=== PATIENT | male | born 1970 ===

== ENCOUNTER 2017-07-18 14:05 | Emergency (ER) | payer MEDICARE, MEDICAID ==
[2017-07-18 14:49] VITALS: BMI 25.8
[2017-07-18 14:50] VITALS: BP 126/77; PULSE 112; RESP 14; TEMP 97.5; O2SAT 98
[2017-07-18] MEDS ORDERED: cefTRIAXone 2 GM in Sodium Chloride 0.9% 100 ML IVPB STA (15:19)
[2017-07-18] MEDS ORDERED: Vancomycin 1 gm/NS 200 ml 1 GM/200 ML BAG IVPB STA (15:19)
--- NOTE | 2017-07-18 15:27 | C.PDOC ---
History Of Present Illness Patient is a 46 y/o M with 3 weeks of worsening R knee swelling. He reports that his knee is swollen and warm. Reports subjective fevers. Denies DM or IVDA. Time Seen by Provider: 07/18/17 14:45 Chief Complaint (Nursing): Lower Extremity Problem/Injury Past Medical History Vital Signs: Last Vital Signs Temp 97.5 F L 07/18/17 14:40 Pulse 112 H 07/18/17 14:40 Resp 14 07/18/17 14:40 BP 126/77 07/18/17 14:40 Pulse Ox 98 07/18/17 15:39 - Medical History PMH: Anxiety, Back Problems (spinal fusion), Bipolar Disorder, Depression, HTN, Hypercholesterolemia, Personality Disorder, Post Traumatic Stress Disorder, Schizophrenia, Chronic Pain (back) Surgical History: Appendectomy, Back Surgery, Tonsillectomy Family History: States: Unknown Family Hx - Social History Hx Tobacco Use: Yes Hx Alcohol Use: No Hx Substance Use: No - Immunization History Hx Tetanus Toxoid Vaccination: No Hx Influenza Vaccination: Yes Hx Pneumococcal Vaccination: No Review Of Systems Except As Marked, All Systems Reviewed And Found Negative. Constitutional: Positive for: Chills. Negative for: Fever Cardiovascular: Negative for: Chest Pain, Palpitations, Orthopnea, Edema, Light Headedness Respiratory: Negative for: Cough, Shortness of Breath, SOB with Excertion Gastrointestinal: Negative for: Nausea, Vomiting, Abdominal Pain, Diarrhea, Constipation Genitourinary: Negative for: Dysuria Musculoskeletal: Positive for: Other (knee pain and redness) Neurological: Negative for: Weakness, Numbness Physical Exam - Physical Exam Appears: Well, Non-toxic, No Acute Distress Skin: Normal Color, Warm, Dry Head: Atraumatic, Normacephalic Eye(s): bilateral: Normal Inspection, PERRL, EOMI Neck: Supple Chest: Symmetrical Cardiovascular: Other (tachycardic) Respiratory: Normal Breath Sounds Gastrointestinal/Abdominal: Soft, No Tenderness, No Mass, No Distention Back: Normal Inspection Extremity: Other (erythema and swelling to R knee. Tender. Decreased ROM and pain with ROM) Gait: Steady ED Course And Treatment O2 Sat by Pulse Oximetry: 98 Medical Decision Making Medical Decision Making: Patient's presentation is consistent with septic joint. Unable to aspirate joint due to surrounding cellulitis. Patient tachycardic on arrival. Blood work and blood cx, antibiotics, pain medication, and CT ordered. Patient will need admission. The patient declines admission or further medical evaluation and treatment, and wishes to leave the Emergency Department. He reports that he has to full up with his pain mgmt doctor this afternoon and needs to go home to speak to his . This action is against my medical advice to the patient and the decision was made with informed refusal. The patient was told that further evaluation, treatment and admission for IV antibiotics and orthopedic evaluation is necessary and a full explanation of the rationale was given. The risks of leaving were explained to the patient and include, but are not limited to, worsening of known or currently unknown conditions, permanent disability and from undiagnosed or untreated conditions The patient has the capacity to make this informed decision and understands the clinical situation and my explanation of the risks of leaving. The patient voluntarily accepts these risks , and a signed AMA form documenting our conversation was obtained. The patient was given the opportunity to ask questions and reconsider. The patient was encouraged to return to the Emergency Department at any time for further care. Disposition - Disposition Disposition: AGAINST MEDICAL ADVICE Disposition Time: 15:52 Condition: UNKNOWN Forms: [employer] (Maltese) - Clinical Impression Clinical Impression: Tachycardia, Knee swelling
== END 2017-07-18 15:52 | disposition left against medical advice (07) ==
LOC: C.ER 14:05
DX: R00.0 Tachycardia, unspecified (principal); R22.41 Localized swelling, mass and lump, right lower limb

== ENCOUNTER 2017-07-20 13:49 | Inpatient (IN) | payer MEDICARE, MEDICAID ==
[2017-07-20 13:50] VITALS: BMI 25.8
[2017-07-20] MEDS ORDERED: Sodium Chloride 0.9% 1,000 ML IV ONE (14:41)
[2017-07-20 15:07] LABS: BASO % 0.3 % (0.0-2.0); EOS # 0.2 K/uL (0.0-0.7); EOS % 1.3 % (0.0-4.0); HEMATOCRIT 37.7 % (35.0-51.0); LYMPH # 1.1 K/uL (1.0-4.3); LYMPH % 6.5 % (20.0-40.0); MEAN CELL VOLUME 92.1 fL (80.0-94.0); MEAN CORPUSCULAR HEMOGLOBIN 30.7 pg (27.0-31.0); MEAN CORPUSCULAR HGB CONC 33.3 g/dL (33.0-37.0); MEAN PLATELET VOLUME 9.1 fL (7.2-11.7); MONO # 1.1 K/uL (0.0-0.8); MONO % 6.8 % (0.0-10.0); PLATELET COUNT 283 K/uL (130-400); RED CELL DISTRIBUTION WIDTH 13.5 % (11.5-14.5)
[2017-07-20 15:09] LABS: WHITE BLOOD COUNT 16.1 K/uL (4.8-10.8)
[2017-07-20] MEDS ORDERED: Vancomycin 1 GM 1 GM/250 ML BAG IVPB STA (15:21)
[2017-07-20 15:22] LABS: CHLORIDE 104 mmol/L (98-107)
[2017-07-20 15:23] LABS: INR 1.1
[2017-07-20 15:23] LABS: SODIUM 139 mmol/L (132-148)
[2017-07-20 15:25] LABS: BILIRUBIN,TOTAL 0.6 mg/dL (0.2-1.3); GFR AFRICAN-AMERICAN > 60
[2017-07-20 15:26] LABS: ALB/GLOB RATIO 1.1 (1.0-2.1); ALKALINE PHOSPHATASE 113 U/L (38-126); ALT/SGPT 40 U/L (21-72); AST/SGOT 35 U/L (17-59); BLOOD UREA NITROGEN 10 mg/dL (9-20); CALCIUM 8.3 mg/dl (8.6-10.4); CARBON DIOXIDE 29 mmol/L (22-30); GLUCOSE,RANDOM 149 mg/dL (75-110); TOTAL PROTEIN 6.4 g/dL (6.3-8.3)
[2017-07-20 15:30] LABS: METAMYELOCYTE 1 % (0-0); NEUTROPHIL 86 % (50-75); TOTAL CELLS COUNTED 100
[2017-07-20] MEDS ORDERED: Vancomycin 1 GM 1 GM/250 ML BAG IVPB ONE (15:33)
[2017-07-20] MEDS ORDERED: Sodium Chloride 0.9% 1,000 ML ONE (15:33)
--- NOTE | 2017-07-20 15:48 | C.PDOC ---
History Of Present Illness Pt c/o right knee infection. Time Seen by Provider: 07/20/17 14:17 Chief Complaint (Nursing): Abnormal Skin Integrity History Per: Patient Onset/Duration Of Symptoms: Days (about 3 weeks) Current Symptoms Are (Timing): Worse Location Of Injury: Right: Knee Quality Of Symptoms: Painful, Swollen, Draining Severity: Moderate Additional History Per: Prior Records Past Medical History Reviewed: Historical Data, Nursing Documentation, Vital Signs Vital Signs: Last Vital Signs Temp 97.9 F 07/20/17 13:55 Pulse 93 H 07/20/17 13:55 Resp 18 07/20/17 13:55 BP 149/90 07/20/17 13:55 Pulse Ox 99 07/20/17 15:55 - Medical History PMH: Anxiety, Back Problems (spinal fusion), Bipolar Disorder, Depression, HTN, Hypercholesterolemia, Personality Disorder, Post Traumatic Stress Disorder, Schizophrenia, Chronic Pain (back) Surgical History: Appendectomy, Back Surgery, Tonsillectomy Family History: States: Unknown Family Hx - Social History Hx Tobacco Use: Yes Hx Alcohol Use: No Hx Substance Use: No - Immunization History Hx Tetanus Toxoid Vaccination: No Hx Influenza Vaccination: Yes Hx Pneumococcal Vaccination: No Review Of Systems Except As Marked, All Systems Reviewed And Found Negative. Constitutional: Positive for: Fever Cardiovascular: Negative for: Chest Pain Respiratory: Negative for: Cough, Shortness of Breath Gastrointestinal: Negative for: Vomiting, Abdominal Pain Genitourinary: Negative for: Dysuria Musculoskeletal: Negative for: Neck Pain Skin: Positive for: Rash Neurological: Negative for: Weakness, Numbness Physical Exam - Physical Exam Appears: Non-toxic, No Acute Distress Skin: Warm Head: Atraumatic, Normacephalic Eye(s): bilateral: Normal Inspection, PERRL, EOMI Neck: Normal ROM, Supple Cardiovascular: Rhythm Regular Respiratory: Normal Breath Sounds, No Accessory Muscle Use Gastrointestinal/Abdominal: Soft, No Tenderness Extremity: Tenderness (anterior right knee), Swelling (right knee), Other ( erythema and induration of anterior right knee with pus drainage) Extremity: Right: Limited ROM To Joint (Knee, due to pain) Pulses: Right Dorsalis Pedis: Normal Neurological/Psych: Oriented x3, Normal Motor, Normal Sensation ED Course And Treatment - Laboratory Results Result Diagrams: 07/20/17 14:59 07/20/17 14:59 Lab Interpretation: Abnormal Interpretation Of Abnormal: Leukocytosis with left shift O2 Sat by Pulse Oximetry: 99 Pulse Ox Interpretation: Normal Disposition Discussed With Dr.: Michael White Comment: He accepted pt on his service. Doctor Will See Patient In The: Hospital Counseled Patient/Family Regarding: Studies Performed, Diagnosis - Disposition Disposition: HOSPITALIZED Disposition Time: 15:59 Condition: FAIR - Clinical Impression Clinical Impression: Abscess or cellulitis of knee
[2017-07-20] MEDS ORDERED: oxyCODONE 5 mg Immediate Release Tab PO PRN ×2 (18:27→19:00)
[2017-07-20] MEDS ORDERED: Piperacill/Tazo 3.375gm in Dex 3.375 GM/50 ML BAG IVPB SCH (19:00)
[2017-07-20] MEDS ORDERED: oxyCODONE 5 mg Immediate Release Tab PO ONE (19:36)
[2017-07-20] MEDS ORDERED: oxyCODONE 10 mg Immediate Release Tab PO ONE (19:45)
[2017-07-20] MEDS: Morphine 30 mg SR Tab PO SCH (22:15)
[2017-07-21] MEDS: oxyCODONE 30 mg Immediate Release Tab PO PRN ×3 (02:21→18:43)
[2017-07-21] MEDS: Vancomycin 1 gm/NS 200 ml 1 GM/200 ML BAG IVPB SCH ×2 (04:00→15:45)
[2017-07-21] MEDS: Piperacill/Tazo 3.375gm in Dex 3.375 GM/50 ML BAG IVPB SCH ×4 (05:22→23:43)
[2017-07-21] MEDS ORDERED: Piperacillin/Tazobact 3.375 GM in Sodium Chloride 0.9% 100 ML IVPB SCH (06:00)
[2017-07-21] MEDS: Morphine 30 mg SR Tab PO SCH ×2 (10:22→21:44)
--- NOTE | 2017-07-21 15:17 | CP.PCM.CON ---
History of Present Illness - History of Present Illness History of Present Illness: Pt c/o right knee infection. right knee ant to patella IV rx in progress Discussed on rounds - Medical History PMH: Anxiety, Back Problems (spinal fusion), Bipolar Disorder, Depression, HTN, Hypercholesterolemia, Personality Disorder, Post Traumatic Stress Disorder, Schizophrenia, Chronic Pain (back) Surgical History: Appendectomy, Back Surgery, Tonsillectomy Family History: States: Unknown Family Hx Review of Systems - Review of Systems All systems: reviewed and no additional remarkable complaints except - Constitutional Constitutional: As Per HPI - EENT Eyes: absent: As Per HPI, Blind Spots, Blurred Vision, Change in Vision, Decreased Night Vision, Diplopia, Discharge, Dry Eye, Exophthalmos, Floaters, Irritation, Itchy Eyes, Loss of Peripheral Vision, Pain, Photophobia, Requires Corrective Lenses, Sees Flashes, Spots in Vision, Tunnel Vision, Other Visual Disturbances, Loss of Vision, Other Ears: absent: As Per HPI, Decreased Hearing, Ear Discharge, Ear Pain, Tinnitus, Abnormal Hearing, Disequilibrium, Dizziness, Other Nose/Mouth/Throat: absent: As Per HPI, Epistaxis, Nasal Congestion, Nasal Discharge, Nasal Obstruction, Nasal Trauma, Nose Pain, Post Nasal Drip, Sinus Pain, Sinus Pressure, Bleeding Gums, Change in Voice, Dental Pain, Dry Mouth, Dysphagia, Halitosis, Hoarsness, Lip Swelling, Mouth Lesions, Mouth Pain, Odynophagia, Sore Throat, Throat Swelling, Tongue Swelling, Facial Pain, Neck Pain, Neck Mass, Other - Cardiovascular Cardiovascular: absent: As Per HPI, Acrocyanosis, Chest Pain, Chest Pain at Rest , Chest Pain with Activity, Claudication, Diaphoresis, Dyspnea, Dyspnea on Exertion, Edema, Irregular Heart Rhythm, Pain Radiating to Arm/Neck/Jaw, Leg Edema, Leg Ulcers, Lightheadedness, Orthopnea, Palpitations, Paroxysmal Nocturnal Dyspnea, Pedal Edema, Radiating Pain, Rapid Heart Rate, Slow Heart Rate, Syncope, Other - Respiratory Respiratory: absent: As Per HPI, Cough, Dyspnea, Hemoptysis, Dyspnea on Exertion , Wheezing, Snoring, Stridor, Pain on Inspiration, Chest Congestion, Excessive Mucous Production, Change in Mucous Color, Pain with Coughing, Other - Gastrointestinal Gastrointestinal: absent: As Per HPI, Abdominal Pain, Belching, Bloating, Change in Bowel Habits, Change in Stool Character, Coffee Ground Emesis, Constipation, Cramping, Diarrhea, Dyspepsia, Dysphagia, Early Satiety, Excessive Flatus, Fecal Incontinence, Heartburn, Hematemesis, Hematochezia, Loose Stools, Melena, Nausea, Odynophagia, Temesmus, Vomiting, Other - Genitourinary Genitourinary: absent: As Per HPI, Change in Urinary Stream, Difficulty Urinating, Dysuria, Flank Pain, Hematuria, Pyuria, Nocturia, Urinary Incontinence, Urinary Frequency, Urinary Hesitance, Urinary Urgency, Voiding Freq/Small Amts, Freq UTI, Hx Renal/Bladder Calculi, Hx /Renal Surgery, Bladder Distension, Other - Musculoskeletal Musculoskeletal: As Per HPI - Integumentary Integumentary: As Per HPI, Skin Pain, Wounds - Neurological Neurological: absent: As Per HPI, Abnormal Gait, Abnormal Hearing, Abnormal Movements, Abnormal Speech, Behavioral Changes, Burning Sensations, Confusion, Convulsions, Disequilibrium, Dizziness, Numbness, Focal Weakness, Frequent Falls , Headaches, Lack of Coordination, Loss of Vision, Memory Loss, Paresthesias, Radicular Pain, Restless Legs, Sensory Deficit, Syncope, Tingling, Tremor, Vertigo, Weakness, Other Visual Disturbances, Other - Psychiatric Psychiatric: absent: As Per HPI, Abnormal Sleep Pattern, Anhedonia, Anxiety, Auditory Hallucinations, Behavioral Changes, Change in Appetite, Change in Libido, Confusion, Depression, Difficulty Concentrating, Hallucinations, Homicidal Ideation, Hopelessness, Irritability, Memory Loss, Mood Swings, Panic Attacks, Paranoia, Suicidal Ideation, Visual Hallucinations, Tactile Hallucinations, Other - Endocrine Endocrine: absent: As Per HPI, Change in Body Appearance, Change in Libido, Cold Intolorance, Deepening of Voice, Excessive Sweating, Fatigue, Flushing, Heat Intolorance, Increase in Ring/Shoe/Hat Size, Palpitations, Polydipsia, Polyphagia, Polyuria, Other - Hematologic/Lymphatic Hematologic: absent: As Per HPI, Easy Bleeding, Easy Bruising, Lymphadenopathy, Other Past Patient History - Infectious Disease Hx of Infectious Diseases: None - Past Medical History & Family History Past Medical History?: Yes - Past Social History Smoking Status: Smoker Currrent Status Unknown - CARDIAC Hx Cardiac Disorders: Yes Hx Hypercholesterolemia: Yes Hx Hypertension: Yes - PULMONARY Hx Respiratory Disorders: No - NEUROLOGICAL Hx Neurological Disorder: No - HEENT Hx HEENT Problems: No - RENAL Hx Chronic Kidney Disease: No - ENDOCRINE/METABOLIC Hx Endocrine Disorders: No - HEMATOLOGICAL/ONCOLOGICAL Hx Blood Disorders: No - INTEGUMENTARY Hx Dermatological Problems: Yes Hx Cellulitis: Yes (right knee) - MUSCULOSKELETAL/RHEUMATOLOGICAL Hx Musculoskeletal Disorders: No Hx Falls: No - GASTROINTESTINAL Hx Gastrointestinal Disorders: Yes Other/Comment: Numerous GI surgical interventions - GENITOURINARY/GYNECOLOGICAL Hx Genitourinary Disorders: No - PSYCHIATRIC Hx Psychophysiologic Disorder: Yes Hx Bipolar Disorder: Yes Hx Schizophrenia: Yes Hx Substance Use: No - SURGICAL HISTORY Hx Surgeries: Yes Hx Appendectomy: Yes Hx Orthopedic Surgery: Yes Hx Tonsillectomy: Yes - ANESTHESIA Hx Anesthesia: Yes Hx Anesthesia Reactions: No Hx Malignant Hyperthermia: No Has any member of the family had a problem w/ anesthesia?: No Meds Allergies/Adverse Reactions: Allergies Allergy/AdvReac Type Severity Reaction Status Date / Time No Known Allergies Allergy Verified 07/20/17 13:54 - Medications Medications: Current Medications Acetaminophen (Tylenol 325mg Tab) 650 mg PO Q6 PRN PRN Reason: Fever >100.4 F Heparin Sodium (Porcine) (Heparin) 5,000 units SC Q8 [facility] Last Admin: 07/21/17 13:49 Dose: Not Given Vancomycin/Sodium Chloride (Vancocin) 1 gm in 200 mls @ 133.333 mls/hr IVPB Q12H [facility] Stop: 07/26/17 03:31 Last Admin: 07/21/17 04:00 Dose: 133.333 mls/hr Piperacillin Sod/Tazobactam Sod (Zosyn 3.375 Gm Iv Premix) 3.375 gm in 50 mls @ 100 mls/hr IVPB Q6H [facility] Last Admin: 07/21/17 12:52 Dose: 100 mls/hr Morphine Sulfate (Morphine Extended Release Tab) 60 mg PO Q12 [facility] Last Admin: 07/21/17 10:22 Dose: 60 mg Oxycodone HCl (Oxycodone Immediate Release Tab) 30 mg PO Q6H PRN PRN Reason: Pain Last Admin: 07/21/17 12:57 Dose: 30 mg Pneumococcal Polyvalent Vaccine (Pneumovax 23 Vaccine) 0.5 ml IM .ONCE ONE Stop: 07/22/17 10:01 Sertraline HCl (Zoloft) 150 mg PO DAILY [facility] Last Admin: 07/21/17 10:22 Dose: 150 mg Physical Exam - Constitutional Appears: Non-toxic, Chronically Ill - Head Exam Head Exam: NORMOCEPHALIC - Eye Exam Eye Exam: PERRL. absent: Scleral icterus - ENT Exam ENT Exam: Mucous Membranes Dry, Normal External Ear Exam - Neck Exam Neck exam: Negative for: Lymphadenopathy - Respiratory Exam Respiratory Exam: Decreased Breath Sounds, Rhonchi - Cardiovascular Exam Cardiovascular Exam: REGULAR RHYTHM, +S1, +S2 - GI/Abdominal Exam GI & Abdominal Exam: Diminished Bowel Sounds, Soft. absent: Tenderness - Rectal Exam Rectal Exam: Deferred - Exam Exam: NORMAL INSPECTION - Extremities Exam Extremities exam: Positive for: pedal pulses present. Negative for: calf tenderness, pedal edema, tenderness Additional comments: cellulitis right knee no definite effusion - Back Exam Back exam: absent: CVA tenderness (L), CVA tenderness (R) - Neurological Exam Neurological exam: Alert, CN II-XII Intact, Oriented x3, Reflexes Normal - Psychiatric Exam Psychiatric exam: Depressed - Skin Skin Exam: Dry Results - Vital Signs Recent Vital Signs: Last Vital Signs Temp 98.5 F 07/21/17 08:00 Pulse 87 07/21/17 08:00 Resp 20 07/21/17 08:00 BP 104/58 L 07/21/17 08:00 Pulse Ox 95 07/21/17 08:00 - Labs Result Diagrams: 07/20/17 14:59 07/20/17 14:59 Assessment & Plan (1) Abscess or cellulitis of knee Status: Acute (2) Knee swelling Status: Acute - Assessment and Plan (Free Text) Assessment: cont iv rx needs i and d
--- NOTE | 2017-07-21 23:49 | CP.PCM.HP ---
Past Patient History - Infectious Disease Hx of Infectious Diseases: None - Past Medical History & Family History Past Medical History?: Yes - Past Social History Smoking Status: Smoker Currrent Status Unknown - CARDIAC Hx Cardiac Disorders: Yes Hx Hypercholesterolemia: Yes Hx Hypertension: Yes - PULMONARY Hx Respiratory Disorders: No - NEUROLOGICAL Hx Neurological Disorder: No - HEENT Hx HEENT Problems: No - RENAL Hx Chronic Kidney Disease: No - ENDOCRINE/METABOLIC Hx Endocrine Disorders: No - HEMATOLOGICAL/ONCOLOGICAL Hx Blood Disorders: No - INTEGUMENTARY Hx Dermatological Problems: Yes Hx Cellulitis: Yes (right knee) - MUSCULOSKELETAL/RHEUMATOLOGICAL Hx Musculoskeletal Disorders: No Hx Falls: No - GASTROINTESTINAL Hx Gastrointestinal Disorders: Yes Other/Comment: Numerous GI surgical interventions - GENITOURINARY/GYNECOLOGICAL Hx Genitourinary Disorders: No - PSYCHIATRIC Hx Psychophysiologic Disorder: Yes Hx Bipolar Disorder: Yes Hx Schizophrenia: Yes Hx Substance Use: No - SURGICAL HISTORY Hx Surgeries: Yes Hx Appendectomy: Yes Hx Orthopedic Surgery: Yes Hx Tonsillectomy: Yes - ANESTHESIA Hx Anesthesia: Yes Hx Anesthesia Reactions: No Hx Malignant Hyperthermia: No Has any member of the family had a problem w/ anesthesia?: No Meds Allergies/Adverse Reactions: Allergies Allergy/AdvReac Type Severity Reaction Status Date / Time No Known Allergies Allergy Verified 07/20/17 13:54 Results - Vital Signs Recent Vital Signs: Last Vital Signs Temp 98.0 F 07/21/17 15:07 Pulse 78 07/21/17 15:07 Resp 20 07/21/17 15:07 BP 115/75 07/21/17 15:07 Pulse Ox 96 07/21/17 15:07 - Labs Result Diagrams: 07/20/17 14:59 07/20/17 14:59 Labs: Laboratory Results - last 24 hr 07/21/17 10:59 Urine Opiates Screen Positive Urine Methadone Screen Negative Ur Barbiturates Screen Negative Ur Phencyclidine Scrn Negative Ur Amphetamines Screen Negative U Benzodiazepines Scrn Negative U Oth Cocaine Metabols Negative U Cannabinoids Screen Negative
[2017-07-22] MEDS: oxyCODONE 30 mg Immediate Release Tab PO PRN ×3 (00:32→10:34)
[2017-07-22] MEDS: Vancomycin 1 gm/NS 200 ml 1 GM/200 ML BAG IVPB SCH ×2 (03:23→14:46)
[2017-07-22] MEDS: Piperacill/Tazo 3.375gm in Dex 3.375 GM/50 ML BAG IVPB SCH ×3 (05:19→17:36)
[2017-07-22] MEDS: Morphine 30 mg SR Tab PO SCH ×2 (09:15→21:51)
[2017-07-22] MEDS ORDERED: Pneumococcal 23-Valent Vaccine IM ONE (10:00)
--- NOTE | 2017-07-22 10:58 | HP ---
CHIEF COMPLAINT: Right knee pain, redness, swelling, and fever x2. HISTORY OF PRESENT ILLNESS: This is a 46-year-old white male with history of chronic back problems, he had surgeries, he had been followed up by Pain Management, and he is on large doses of narcotic pain medications, who is compliant with his diet, medication, and followup, and 2 weeks ago, he shaved hair on his right leg, and in that process, he made a cut to his right knee, and later on, he did not seek any medical attention until now, and now his right knee is red, warm to touch, painful, and the patient is having difficulty walking. He has fever, chills, and rigors. He has discharge from his right wound in front of the right knee and he has difficulty walking. He denies any nausea, vomiting, diarrhea, or abdominal pain. He denies any polyuria, polydipsia, or polyplegia. He denies any hematuria or pyuria. He had lower back pain radiating to the hips. He denies any history of trauma, fall, seizure-like activity. No history of loss of consciousness. He denies any street drugs or alcohol. There is no history of sneezing, itchy eyes, or itchy nose. There is no history of blind spot, blurring of vision, change of vision, decreased anosmia. There is no history of diplopia, discharge, or dry eyes. The patient denies any cough, hemoptysis, dyspnea on exertion, wheezing, snoring, stridor, pain upon inspiration, chest congestion, or excessive mucus production. The patient denies any history of change in urinary stream, difficulty urinating, or dysuria. He denies flank pain, hematuria, pyuria, nocturia, urinary incontinence, and he denies any history of difficulty walking. He denies any abnormal hearing, abnormal movements, abnormal speech, or behavioral changes, and he denies any history of depression, suicidal or homicidal ideation. SOCIAL HISTORY: He is nonsmoker, non-EtOH user. FAMILY HISTORY: Noncontributory. CURRENT MEDICATIONS: He is on MS Contin, oxycodone, Zoloft, Norvasc. PHYSICAL EXAMINATION GENERAL: A middle-aged male, in no acute distress. VITAL SIGNS: Blood pressure is 104/54, pulse 57, respiratory rate 20, and temperature 98.5. SKIN: Has extensive tattoos all over. HEENT: Atraumatic and normocephalic. Negative pallor. Negative jaundice. Extraocular movements are intact. NECK: Supple. Flat neck veins. No JVD. CHEST: Chest wall bilaterally symmetrical expansion. LUNGS: Bilaterally clear. No rales, no rhonchi. CVS: S1 and S2 regular. No heaves noted. ABDOMEN: Soft and nontender. Bowel sounds are positive. RECTAL: Normal. EXTREMITIES: No clubbing, cyanosis, or edema. Right knee, the patient has open wound in front of right knee with discharge, red discoloration of entire kneecap. Peripheral pulses are present. CENTRAL NERVOUS SYSTEM: Awake, alert, and oriented x3. Cranial nerves II through XII are normal. Power is 5/5 x4. ASSESSMENT: 1. Cellulitis of the right knee, right leg, rule out osteomyelitis. 2. Low back pain. PLAN: Admit, detailed orders written, seen and examined. Michael White MD
[2017-07-22] MEDS: oxyCODONE 10 mg Immediate Release Tab PO STA (13:19)
[2017-07-22 16:28] LABS: BASO # 0.1 K/uL (0.0-0.2); BASO % 0.7 % (0.0-2.0); EOS # 0.5 K/uL (0.0-0.7); EOS % 5.1 % (0.0-4.0); HEMATOCRIT 35.3 % (35.0-51.0); LYMPH # 1.9 K/uL (1.0-4.3); LYMPH % 20.6 % (20.0-40.0); MEAN CELL VOLUME 92.3 fL (80.0-94.0); MEAN CORPUSCULAR HEMOGLOBIN 31.4 pg (27.0-31.0); MEAN PLATELET VOLUME 8.4 fL (7.2-11.7); MONO # 0.8 K/uL (0.0-0.8); MONO % 8.5 % (0.0-10.0); RED CELL DISTRIBUTION WIDTH 13.6 % (11.5-14.5); WHITE BLOOD COUNT 9.4 K/uL (4.8-10.8)
[2017-07-22 16:46] LABS: CHLORIDE 104 mmol/L (98-107)
[2017-07-22 16:47] LABS: POTASSIUM 4.2 mmol/L (3.6-5.2); SODIUM 143 mmol/L (132-148)
[2017-07-22 16:49] LABS: GFR AFRICAN-AMERICAN > 60
[2017-07-22 16:50] LABS: BLOOD UREA NITROGEN 11 mg/dL (9-20); CALCIUM 8.5 mg/dl (8.6-10.4); CARBON DIOXIDE 28 mmol/L (22-30); GLUCOSE,RANDOM 97 mg/dL (75-110)
[2017-07-23] MEDS: oxyCODONE 30 mg Immediate Release Tab PO PRN ×4 (00:01→17:44)
[2017-07-23] MEDS: Piperacill/Tazo 3.375gm in Dex 3.375 GM/50 ML BAG IVPB SCH ×4 (00:01→17:45)
[2017-07-23] MEDS: Vancomycin 1 gm/NS 200 ml 1 GM/200 ML BAG IVPB SCH ×2 (03:15→14:40)
[2017-07-23 07:52] VITALS: RESP 20
[2017-07-23] MEDS: Morphine 30 mg SR Tab PO SCH ×2 (10:56→21:38)
--- NOTE | 2017-07-23 13:42 | CP.PCM.PN ---
Subjective - Date & Time of Evaluation Date of Evaluation: 07/23/17 Time of Evaluation: 07:00 - Subjective Subjective: iv rx in progress + MSSA Objective - Vital Signs/Intake and Output Vital Signs (last 24 hours): Temp Pulse Resp BP Pulse Ox 98.6 F 77 20 119/69 95 07/23/17 07:50 07/23/17 07:50 07/23/17 07:50 07/23/17 07:50 07/23/17 07:50 Intake and Output: 07/23/17 07/23/17 06:59 18:59 Intake Total 500 Balance 500 - Medications Medications: Current Medications Acetaminophen (Tylenol 325mg Tab) 650 mg PO Q6 PRN PRN Reason: Fever >100.4 F Heparin Sodium (Porcine) (Heparin) 5,000 units SC Q8 [facility] Last Admin: 07/23/17 13:03 Dose: Not Given Vancomycin/Sodium Chloride (Vancocin) 1 gm in 200 mls @ 133.333 mls/hr IVPB Q12H [facility] Stop: 07/26/17 03:31 Last Admin: 07/23/17 03:15 Dose: 133.333 mls/hr Piperacillin Sod/Tazobactam Sod (Zosyn 3.375 Gm Iv Premix) 3.375 gm in 50 mls @ 100 mls/hr IVPB Q6H [facility] Last Admin: 07/23/17 06:10 Dose: 100 mls/hr Morphine Sulfate (Morphine Extended Release Tab) 60 mg PO Q12 [facility] Last Admin: 07/23/17 10:56 Dose: 60 mg Oxycodone HCl (Oxycodone Immediate Release Tab) 30 mg PO Q6H PRN PRN Reason: Pain Last Admin: 07/23/17 11:48 Dose: 30 mg Sertraline HCl (Zoloft) 150 mg PO DAILY [facility] Last Admin: 07/23/17 10:57 Dose: 150 mg - Labs Labs: 07/22/17 16:25 07/22/17 16:25 PT 12.2 SECONDS (9.7-12.2) 07/20/17 15:03 INR 1.1 07/20/17 15:03 APTT 34 SECONDS (21-34) 07/20/17 15:03 - Constitutional Appears: Non-toxic, Chronically Ill - Head Exam Head Exam: NORMOCEPHALIC - Eye Exam Eye Exam: PERRL - ENT Exam ENT Exam: Mucous Membranes Dry - Neck Exam Neck Exam: absent: Lymphadenopathy - Respiratory Exam Respiratory Exam: Decreased Breath Sounds, Rhonchi - Cardiovascular Exam Cardiovascular Exam: REGULAR RHYTHM - GI/Abdominal Exam GI & Abdominal Exam: Distended, Soft Assessment and Plan (1) Abscess or cellulitis of knee Status: Acute (2) Knee swelling Status: Acute - Assessment and Plan (Free Text) Plan: cont iv rx and wound care
--- NOTE | 2017-07-23 13:53 | CP.PCM.PN ---
Subjective - Date & Time of Evaluation Date of Evaluation: 07/23/17 Time of Evaluation: 13:50 - Subjective Subjective: Patient states knee is feeling much better. He says he still got a little bit of pus out of his knee today. Denies numbness/tingling Review of Systems - Review of Systems All systems: reviewed and no additional remarkable complaints except - Constitutional Constitutional: UN Additional comments: deniess fever chills - Cardiovascular Cardiovascular: UNREMARKABLE - Respiratory Respiratory: UNREMARKABLE - Musculoskeletal Musculoskeletal: As Par HPI - Integumentary Integumentary: As Per HPI - Neurological Neurological: As Per HPI - Hematologic/Lymphatic Hematologic: UNREMARKABLE Objective - Vital Signs/Intake and Output Vital Signs (last 24 hours): Temp Pulse Resp BP Pulse Ox 98.6 F 77 20 119/69 95 07/23/17 07:50 07/23/17 07:50 07/23/17 07:50 07/23/17 07:50 07/23/17 07:50 Intake and Output: 07/23/17 07/23/17 06:59 18:59 Intake Total 500 Balance 500 - Medications Medications: Current Medications Acetaminophen (Tylenol 325mg Tab) 650 mg PO Q6 PRN PRN Reason: Fever >100.4 F Heparin Sodium (Porcine) (Heparin) 5,000 units SC Q8 [facility] Last Admin: 07/23/17 13:03 Dose: Not Given Vancomycin/Sodium Chloride (Vancocin) 1 gm in 200 mls @ 133.333 mls/hr IVPB Q12H [facility] Stop: 07/26/17 03:31 Last Admin: 07/23/17 03:15 Dose: 133.333 mls/hr Piperacillin Sod/Tazobactam Sod (Zosyn 3.375 Gm Iv Premix) 3.375 gm in 50 mls @ 100 mls/hr IVPB Q6H [facility] Last Admin: 07/23/17 06:10 Dose: 100 mls/hr Morphine Sulfate (Morphine Extended Release Tab) 60 mg PO Q12 [facility] Last Admin: 07/23/17 10:56 Dose: 60 mg Oxycodone HCl (Oxycodone Immediate Release Tab) 30 mg PO Q6H PRN PRN Reason: Pain Last Admin: 07/23/17 11:48 Dose: 30 mg Sertraline HCl (Zoloft) 150 mg PO DAILY [facility] Last Admin: 07/23/17 10:57 Dose: 150 mg - Labs Labs: 07/22/17 16:25 07/22/17 16:25 PT 12.2 SECONDS (9.7-12.2) 07/20/17 15:03 INR 1.1 07/20/17 15:03 APTT 34 SECONDS (21-34) 07/20/17 15:03 - Constitutional Appears: Well, No Acute Distress - Cardiovascular Exam Additional comments: +DP /PT pulses, calves soft NT neg homans - Extremities Exam Additional comments: sensation intact wound cleaned and dry sterile dressing applied no fluctuance noted, clinically doesn't appear to have any area to I&D at this time - Neurological Exam Neurological Exam: Alert, Awake, Oriented x3 Neuro motor strength exam: Right Lower Extremity: 5 (no pain with ROM knee, + ROM ankle/toes) - Psychiatric Exam Psychiatric exam: Normal Affect, Normal Mood - Skin Skin Exam: Warm Additional comments: + erythema skin peeling 3 wounds noted, one most medial able to express scant pus today Assessment and Plan (1) Septic prepatellar bursitis of right knee Assessment & Plan: Dr. Scales notified of consult 07/21 per chart ordered warm compresses at this time, spontaneously draining from 3 sites prepatellar cont warm compresses and dressing changes will monitor for any recurrent abscess formation +MSSA per culture cont IV abx and monitoring at this time no clinical suspicion of deep infection or joint involvement at this time xrays d/w Dr. Scales, agrees with above Status: Acute Past Patient History - Infectious Disease Hx of Infectious Diseases: None - Past Medical History & Family History Past Medical History?: Yes - Past Social History Smoking Status: Smoker Currrent Status Unknown - CARDIAC Hx Cardiac Disorders: Yes Hx Hypercholesterolemia: Yes Hx Hypertension: Yes - PULMONARY Hx Respiratory Disorders: No - NEUROLOGICAL Hx Neurological Disorder: No - HEENT Hx HEENT Problems: No - RENAL Hx Chronic Kidney Disease: No - ENDOCRINE/METABOLIC Hx Endocrine Disorders: No - HEMATOLOGICAL/ONCOLOGICAL Hx Blood Disorders: No - INTEGUMENTARY Hx Dermatological Problems: Yes Hx Cellulitis: Yes (right knee) - MUSCULOSKELETAL/RHEUMATOLOGICAL Hx Musculoskeletal Disorders: No Hx Falls: No - GASTROINTESTINAL Hx Gastrointestinal Disorders: Yes Other/Comment: Numerous GI surgical interventions - GENITOURINARY/GYNECOLOGICAL Hx Genitourinary Disorders: No - PSYCHIATRIC Hx Psychophysiologic Disorder: Yes Hx Bipolar Disorder: Yes Hx Schizophrenia: Yes Hx Substance Use: No - SURGICAL HISTORY Hx Surgeries: Yes Hx Appendectomy: Yes Hx Orthopedic Surgery: Yes Hx Tonsillectomy: Yes - ANESTHESIA Hx Anesthesia: Yes Hx Anesthesia Reactions: No Hx Malignant Hyperthermia: No Has any member of the family had a problem w/ anesthesia?: No
[2017-07-23] MEDS: oxyCODONE 10 mg Immediate Release Tab PO STA ×3 (15:14→15:21)
--- NOTE | 2017-07-23 15:37 | RAD ---
PROCEDURE: Right Knee Radiographs. HISTORY: knee pain COMPARISON: None. FINDINGS: BONES: No evidence of acute displaced fracture nor dislocation. The osseous structures intact. . No obvious cortical destructive changes. JOINTS: Joint spaces preserved. No significant osteoarthritis. JOINT EFFUSION: Tiny suprapatellar joint effusion. In addition, there also appears to be mild prepatellar soft tissue swelling. OTHER FINDINGS: None. IMPRESSION: No evidence of acute displaced fracture nor dislocation. Tiny suprapatellar joint effusion and mild prepatellar soft tissue swelling. Changes are nonspecific although could represent sequela of trauma however the possibility of inflammatory process/cellulitis not excluded. Clinical correlation recommended.
--- NOTE | 2017-07-23 23:54 | CP.PCM.PN ---
Subjective - Date & Time of Evaluation Date of Evaluation: 07/22/17 - Subjective Subjective: RKNEE PAIN, DISCHARGE, NO FEVER, NO SOB, NO COUGH, NO CHEST PAIN Objective - Vital Signs/Intake and Output Vital Signs (last 24 hours): Temp Pulse Resp BP Pulse Ox 98.0 F 71 20 117/72 96 07/23/17 15:00 07/23/17 15:00 07/23/17 15:00 07/23/17 15:00 07/23/17 15:00 Intake and Output: 07/23/17 07/24/17 18:59 06:59 Intake Total 500 Balance 500 - Medications Medications: Current Medications Acetaminophen (Tylenol 325mg Tab) 650 mg PO Q6 PRN PRN Reason: Fever >100.4 F Heparin Sodium (Porcine) (Heparin) 5,000 units SC Q8 [facility] Last Admin: 07/23/17 21:39 Dose: Not Given Vancomycin/Sodium Chloride (Vancocin) 1 gm in 200 mls @ 133.333 mls/hr IVPB Q12H [facility] Stop: 07/26/17 03:31 Last Admin: 07/23/17 14:40 Dose: 133.333 mls/hr Piperacillin Sod/Tazobactam Sod (Zosyn 3.375 Gm Iv Premix) 3.375 gm in 50 mls @ 100 mls/hr IVPB Q6H [facility] Last Admin: 07/23/17 17:45 Dose: 100 mls/hr Morphine Sulfate (Morphine Extended Release Tab) 60 mg PO Q12 [facility] Last Admin: 07/23/17 21:38 Dose: 60 mg Oxycodone HCl (Oxycodone Immediate Release Tab) 30 mg PO Q6H PRN PRN Reason: Pain Last Admin: 07/23/17 17:44 Dose: 30 mg Sertraline HCl (Zoloft) 150 mg PO DAILY [facility] Last Admin: 07/23/17 10:57 Dose: 150 mg - Labs Labs: 07/22/17 16:25 07/22/17 16:25 PT 12.2 SECONDS (9.7-12.2) 07/20/17 15:03 INR 1.1 07/20/17 15:03 APTT 34 SECONDS (21-34) 07/20/17 15:03 - Constitutional Appears: Non-toxic, No Acute Distress - Head Exam Head Exam: ATRAUMATIC, NORMAL INSPECTION, NORMOCEPHALIC - Eye Exam Eye Exam: EOMI, Normal appearance Pupil Exam: NORMAL ACCOMODATION - ENT Exam ENT Exam: Mucous Membranes Moist, Normal Exam - Neck Exam Neck Exam: Full ROM, Normal Inspection - Respiratory Exam Respiratory Exam: Clear to Ausculation Bilateral, NORMAL BREATHING PATTERN - Cardiovascular Exam Cardiovascular Exam: REGULAR RHYTHM, +S1, +S2 - GI/Abdominal Exam GI & Abdominal Exam: Soft - Extremities Exam Extremities Exam: Joint Swelling (R KNEE SWELLING, SKIN CUTS) Assessment and Plan (1) Septic prepatellar bursitis of right knee Assessment & Plan: PENDING WOUND CULTURE Status: Acute (2) Chronic back pain Status: Chronic
--- NOTE | 2017-07-23 23:55 | CP.PCM.PN ---
Subjective - Date & Time of Evaluation Date of Evaluation: 07/23/17 - Subjective Subjective: R KNEE WAS TAPED AND STAPH POSITIVE CULTURE, NO FEVER, ON ANTIBIOTICS Objective - Vital Signs/Intake and Output Vital Signs (last 24 hours): Temp Pulse Resp BP Pulse Ox 98.0 F 71 20 117/72 96 07/23/17 15:00 07/23/17 15:00 07/23/17 15:00 07/23/17 15:00 07/23/17 15:00 Intake and Output: 07/23/17 07/24/17 18:59 06:59 Intake Total 500 Balance 500 - Medications Medications: Current Medications Acetaminophen (Tylenol 325mg Tab) 650 mg PO Q6 PRN PRN Reason: Fever >100.4 F Heparin Sodium (Porcine) (Heparin) 5,000 units SC Q8 [facility] Last Admin: 07/23/17 21:39 Dose: Not Given Vancomycin/Sodium Chloride (Vancocin) 1 gm in 200 mls @ 133.333 mls/hr IVPB Q12H [facility] Stop: 07/26/17 03:31 Last Admin: 07/23/17 14:40 Dose: 133.333 mls/hr Piperacillin Sod/Tazobactam Sod (Zosyn 3.375 Gm Iv Premix) 3.375 gm in 50 mls @ 100 mls/hr IVPB Q6H [facility] Last Admin: 07/23/17 17:45 Dose: 100 mls/hr Morphine Sulfate (Morphine Extended Release Tab) 60 mg PO Q12 [facility] Last Admin: 07/23/17 21:38 Dose: 60 mg Oxycodone HCl (Oxycodone Immediate Release Tab) 30 mg PO Q6H PRN PRN Reason: Pain Last Admin: 07/23/17 17:44 Dose: 30 mg Sertraline HCl (Zoloft) 150 mg PO DAILY [facility] Last Admin: 07/23/17 10:57 Dose: 150 mg - Labs Labs: 07/22/17 16:25 07/22/17 16:25 PT 12.2 SECONDS (9.7-12.2) 07/20/17 15:03 INR 1.1 07/20/17 15:03 APTT 34 SECONDS (21-34) 07/20/17 15:03 - Constitutional Appears: Non-toxic, No Acute Distress - Head Exam Head Exam: ATRAUMATIC, NORMAL INSPECTION, NORMOCEPHALIC - Extremities Exam Extremities Exam: Normal Capillary Refill (R KNEE REDNESS AND SWELLING) Assessment and Plan (1) Septic prepatellar bursitis of right knee Status: Acute (2) Chronic back pain Status: Chronic
[2017-07-24] MEDS: Piperacill/Tazo 3.375gm in Dex 3.375 GM/50 ML BAG IVPB SCH ×3 (00:10→11:41)
[2017-07-24] MEDS: oxyCODONE 30 mg Immediate Release Tab PO PRN ×4 (00:30→19:44)
[2017-07-24] MEDS: Vancomycin 1 gm/NS 200 ml 1 GM/200 ML BAG IVPB SCH ×2 (03:25→14:33)
[2017-07-24 08:16] LABS: BASO # 0.1 K/uL (0.0-0.2); BASO % 0.9 % (0.0-2.0); EOS # 0.4 K/uL (0.0-0.7); EOS % 5.4 % (0.0-4.0); HEMATOCRIT 38.2 % (35.0-51.0); LYMPH # 2.1 K/uL (1.0-4.3); LYMPH % 25.2 % (20.0-40.0); MEAN CELL VOLUME 91.7 fL (80.0-94.0); MEAN CORPUSCULAR HEMOGLOBIN 30.7 pg (27.0-31.0); MEAN CORPUSCULAR HGB CONC 33.5 g/dL (33.0-37.0); MEAN PLATELET VOLUME 8.3 fL (7.2-11.7); MONO # 0.8 K/uL (0.0-0.8); MONO % 9.7 % (0.0-10.0); RED CELL DISTRIBUTION WIDTH 13.4 % (11.5-14.5); WHITE BLOOD COUNT 8.2 K/uL (4.8-10.8)
--- NOTE | 2017-07-24 08:25 | CP.PCM.PN ---
Subjective - Date & Time of Evaluation Date of Evaluation: 07/24/17 Time of Evaluation: 08:22 - Subjective Subjective: Patient states knee pain continues to improve. No changes overnight. Objective - Vital Signs/Intake and Output Vital Signs (last 24 hours): Temp Pulse Resp BP Pulse Ox 97.8 F 62 20 123/73 98 07/24/17 07:47 07/24/17 07:47 07/24/17 07:47 07/24/17 07:47 07/24/17 07:47 Intake and Output: 07/24/17 07/24/17 06:59 18:59 Intake Total 940 Output Total 800 Balance 140 - Medications Medications: Current Medications Acetaminophen (Tylenol 325mg Tab) 650 mg PO Q6 PRN PRN Reason: Fever >100.4 F Heparin Sodium (Porcine) (Heparin) 5,000 units SC Q8 [facility] Last Admin: 07/24/17 05:07 Dose: Not Given Vancomycin/Sodium Chloride (Vancocin) 1 gm in 200 mls @ 133.333 mls/hr IVPB Q12H [facility] Stop: 07/26/17 03:31 Last Admin: 07/24/17 03:25 Dose: 133.333 mls/hr Piperacillin Sod/Tazobactam Sod (Zosyn 3.375 Gm Iv Premix) 3.375 gm in 50 mls @ 100 mls/hr IVPB Q6H [facility] Last Admin: 07/24/17 05:06 Dose: 100 mls/hr Morphine Sulfate (Morphine Extended Release Tab) 60 mg PO Q12 [facility] Last Admin: 07/23/17 21:38 Dose: 60 mg Oxycodone HCl (Oxycodone Immediate Release Tab) 30 mg PO Q6H PRN PRN Reason: Pain Last Admin: 07/24/17 06:30 Dose: 30 mg Sertraline HCl (Zoloft) 150 mg PO DAILY [facility] Last Admin: 07/23/17 10:57 Dose: 150 mg - Labs Labs: 07/24/17 08:02 07/22/17 16:25 PT 12.2 SECONDS (9.7-12.2) 07/20/17 15:03 INR 1.1 07/20/17 15:03 APTT 34 SECONDS (21-34) 07/20/17 15:03 - Constitutional Appears: Well, No Acute Distress - Head Exam Head Exam: ATRAUMATIC - Cardiovascular Exam Additional comments: +DP/PT pulses - Extremities Exam Additional comments: Right knee: draining prepatellar septic bursitis - Neurological Exam Neurological Exam: Alert, Awake, Oriented x3 Neuro motor strength exam: Right Lower Extremity: 5 (full ROM right knee without pain until full flexion, +ROM ankle/toes) - Psychiatric Exam Psychiatric exam: Normal Affect, Normal Mood - Skin Skin Exam: Warm Additional comments: scant drainage from wounds unable to express any further pus today no fluctuance or abscess formation overnight Assessment and Plan (1) Septic prepatellar bursitis of right knee Assessment & Plan: no increased accumulation will monitor at this time per Dr. Scales continue antibtiocs as per ID +MSSA d/w Dr. Scales, agrees with above, warm compresses Status: Acute
[2017-07-24 08:26] LABS: CHLORIDE 103 mmol/L (98-107)
[2017-07-24 08:27] LABS: POTASSIUM 3.9 mmol/L (3.6-5.2); SODIUM 141 mmol/L (132-148)
[2017-07-24 08:29] LABS: GFR AFRICAN-AMERICAN > 60
[2017-07-24 08:30] LABS: BLOOD UREA NITROGEN 14 mg/dL (9-20); CALCIUM 8.5 mg/dl (8.6-10.4); CARBON DIOXIDE 30 mmol/L (22-30); GLUCOSE,RANDOM 72 mg/dL (75-110)
[2017-07-24] MEDS: Morphine 30 mg SR Tab PO SCH ×2 (10:35→21:08)
--- NOTE | 2017-07-24 17:07 | CP.PCM.PN ---
Subjective - Date & Time of Evaluation Date of Evaluation: 07/24/17 Time of Evaluation: 09:00 - Subjective Subjective: no fever c/o pain + swelling prepatellar no pus may need drainage + MSSA Objective - Vital Signs/Intake and Output Vital Signs (last 24 hours): Temp Pulse Resp BP Pulse Ox 98.1 F 75 20 128/85 96 07/24/17 16:00 07/24/17 16:00 07/24/17 16:00 07/24/17 16:00 07/24/17 16:00 Intake and Output: 07/24/17 07/24/17 06:59 18:59 Intake Total 940 500 Output Total 800 600 Balance 140 -100 - Medications Medications: Current Medications Acetaminophen (Tylenol 325mg Tab) 650 mg PO Q6 PRN PRN Reason: Fever >100.4 F Heparin Sodium (Porcine) (Heparin) 5,000 units SC Q8 [facility] Last Admin: 07/24/17 15:14 Dose: Not Given Vancomycin/Sodium Chloride (Vancocin) 1 gm in 200 mls @ 133.333 mls/hr IVPB Q12H [facility] Stop: 07/26/17 03:31 Last Admin: 07/24/17 14:33 Dose: 133.333 mls/hr Piperacillin Sod/Tazobactam Sod (Zosyn 3.375 Gm Iv Premix) 3.375 gm in 50 mls @ 100 mls/hr IVPB Q6H [facility] Last Admin: 07/24/17 11:41 Dose: 100 mls/hr Morphine Sulfate (Morphine Extended Release Tab) 60 mg PO Q12 [facility] Last Admin: 07/24/17 10:35 Dose: 60 mg Oxycodone HCl (Oxycodone Immediate Release Tab) 30 mg PO Q6H PRN PRN Reason: Pain Last Admin: 07/24/17 13:43 Dose: 30 mg Sertraline HCl (Zoloft) 150 mg PO DAILY [facility] Last Admin: 07/24/17 09:23 Dose: 150 mg - Labs Labs: 07/24/17 08:02 07/24/17 08:02 PT 12.2 SECONDS (9.7-12.2) 07/20/17 15:03 INR 1.1 07/20/17 15:03 APTT 34 SECONDS (21-34) 07/20/17 15:03 - Constitutional Appears: Non-toxic, Chronically Ill - Head Exam Head Exam: NORMOCEPHALIC - Eye Exam Eye Exam: PERRL - ENT Exam ENT Exam: Mucous Membranes Dry - Neck Exam Neck Exam: absent: Lymphadenopathy - Respiratory Exam Respiratory Exam: Decreased Breath Sounds - Cardiovascular Exam Cardiovascular Exam: REGULAR RHYTHM - GI/Abdominal Exam GI & Abdominal Exam: Distended, Soft Assessment and Plan (1) Abscess or cellulitis of knee Status: Acute (2) Knee swelling Status: Acute - Assessment and Plan (Free Text) Plan: cont iv then po rx may need drainage
--- NOTE | 2017-07-24 23:34 | CP.PCM.PN ---
Subjective - Date & Time of Evaluation Date of Evaluation: 07/24/17 - Subjective Subjective: AFEBRILE, FEELS BETTER, NO SOB Objective - Vital Signs/Intake and Output Vital Signs (last 24 hours): Temp Pulse Resp BP Pulse Ox 98.4 F 81 20 162/67 H 99 07/24/17 22:43 07/24/17 22:43 07/24/17 22:43 07/24/17 22:43 07/24/17 22:43 Intake and Output: 07/24/17 07/25/17 18:59 06:59 Intake Total 500 410 Output Total 600 Balance -100 410 - Medications Medications: Current Medications Acetaminophen (Tylenol 325mg Tab) 650 mg PO Q6 PRN PRN Reason: Fever >100.4 F Heparin Sodium (Porcine) (Heparin) 5,000 units SC Q8 [facility] Last Admin: 07/24/17 21:08 Dose: Not Given Cefazolin Sodium 2 gm/ (Dextrose) 50 mls @ 100 mls/hr IVPB Q8H [facility] Last Admin: 07/24/17 19:20 Dose: 100 mls/hr Morphine Sulfate (Morphine Extended Release Tab) 60 mg PO Q12 [facility] Last Admin: 07/24/17 21:08 Dose: 60 mg Oxycodone HCl (Oxycodone Immediate Release Tab) 30 mg PO Q6H PRN PRN Reason: Pain Last Admin: 07/24/17 19:44 Dose: 30 mg Sertraline HCl (Zoloft) 150 mg PO DAILY [facility] Last Admin: 07/24/17 09:23 Dose: 150 mg - Labs Labs: 07/24/17 08:02 07/24/17 08:02 PT 12.2 SECONDS (9.7-12.2) 07/20/17 15:03 INR 1.1 07/20/17 15:03 APTT 34 SECONDS (21-34) 07/20/17 15:03 - Constitutional Appears: Non-toxic, No Acute Distress - Head Exam Head Exam: ATRAUMATIC, NORMAL INSPECTION, NORMOCEPHALIC - Eye Exam Eye Exam: EOMI, Normal appearance, PERRL Pupil Exam: NORMAL ACCOMODATION - Neck Exam Neck Exam: Normal Inspection - Respiratory Exam Respiratory Exam: Clear to Ausculation Bilateral, NORMAL BREATHING PATTERN - Cardiovascular Exam Cardiovascular Exam: REGULAR RHYTHM - GI/Abdominal Exam GI & Abdominal Exam: Normal Bowel Sounds - Rectal Exam Rectal Exam: NORMAL INSPECTION - Neurological Exam Neurological Exam: Alert, Awake, CN II-XII Intact, Normal Gait, Oriented x3 Neuro motor strength exam: Left Upper Extremity: 5, Right Upper Extremity: 5, Left Lower Extremity: 5, Right Lower Extremity: 5 - Skin Skin Exam: Normal Color (R KNEE WOUND AND SWELLING) Assessment and Plan (1) Septic prepatellar bursitis of right knee Status: Acute (2) Chronic back pain Status: Chronic
[2017-07-25] MEDS: oxyCODONE 30 mg Immediate Release Tab PO PRN ×4 (02:50→20:00)
--- NOTE | 2017-07-25 08:30 | CP.PCM.PN ---
Subjective - Date & Time of Evaluation Date of Evaluation: 07/25/17 Time of Evaluation: 08:23 - Subjective Subjective: Patient states his knee is feeling better everyday. No new complaints. Denies numbness/tingling/CP/SOB. Review of Systems - Review of Systems All systems: reviewed and no additional remarkable complaints except - Musculoskeletal Musculoskeletal: As Par HPI - Integumentary Integumentary: As Per HPI - Neurological Neurological: UNREMARKABLE - Hematologic/Lymphatic Hematologic: UNREMARKABLE Objective - Vital Signs/Intake and Output Vital Signs (last 24 hours): Temp Pulse Resp BP Pulse Ox 98.2 F 65 20 106/67 96 07/25/17 08:15 07/25/17 08:15 07/25/17 08:15 07/25/17 08:15 07/25/17 08:15 Intake and Output: 07/25/17 07/25/17 06:59 18:59 Intake Total 860 Balance 860 - Medications Medications: Current Medications Acetaminophen (Tylenol 325mg Tab) 650 mg PO Q6 PRN PRN Reason: Fever >100.4 F Heparin Sodium (Porcine) (Heparin) 5,000 units SC Q8 [facility] Last Admin: 07/25/17 05:51 Dose: Not Given Cefazolin Sodium 2 gm/ (Dextrose) 50 mls @ 100 mls/hr IVPB Q8H [facility] Last Admin: 07/25/17 02:40 Dose: 100 mls/hr Morphine Sulfate (Morphine Extended Release Tab) 60 mg PO Q12 [facility] Last Admin: 07/24/17 21:08 Dose: 60 mg Oxycodone HCl (Oxycodone Immediate Release Tab) 30 mg PO Q6H PRN PRN Reason: Pain Last Admin: 07/25/17 02:50 Dose: 30 mg Sertraline HCl (Zoloft) 150 mg PO DAILY [facility] Last Admin: 07/24/17 09:23 Dose: 150 mg - Labs Labs: 07/24/17 08:02 07/24/17 08:02 PT 12.2 SECONDS (9.7-12.2) 07/20/17 15:03 INR 1.1 07/20/17 15:03 APTT 34 SECONDS (21-34) 07/20/17 15:03 - Constitutional Appears: Well, No Acute Distress - Neurological Exam Neuro motor strength exam: Right Lower Extremity: 5 (full ROM of knee with pain only at full flexion, improving, calves soft NT neg homans +DP/PT sensation intact) - Skin Skin Exam: Warm Additional comments: Erythema improving. Pre patellar swelling improving, no reaccumulation. bogginess under wounds is improving. No abscess clinically. Slowly continues to improve. Some fibrinous exudate on wounds. Assessment and Plan (1) Septic prepatellar bursitis of right knee Assessment & Plan: at this time, I&D will not expedite recovery but will continue to monitor Continue IV antibiotics and dressing changes at this time and monitor for drainage +MSSA IV abx as per ID d/w Dr. Scales, agrees with above Status: Acute
[2017-07-25] MEDS: Morphine 30 mg SR Tab PO SCH ×2 (09:48→21:24)
--- NOTE | 2017-07-25 19:10 | CP.PCM.PN ---
Subjective - Date & Time of Evaluation Date of Evaluation: 07/25/17 Time of Evaluation: 09:00 - Subjective Subjective: prev noteds reviewed cont iv rx/ wound care Objective - Vital Signs/Intake and Output Vital Signs (last 24 hours): Temp Pulse Resp BP Pulse Ox 97.2 F L 77 20 120/83 98 07/25/17 16:00 07/25/17 16:00 07/25/17 16:00 07/25/17 16:00 07/25/17 16:00 Intake and Output: 07/25/17 07/26/17 18:59 06:59 Intake Total 650 Balance 650 - Medications Medications: Current Medications Acetaminophen (Tylenol 325mg Tab) 650 mg PO Q6 PRN PRN Reason: Fever >100.4 F Last Admin: 07/25/17 17:35 Dose: 650 mg Heparin Sodium (Porcine) (Heparin) 5,000 units SC Q8 [facility] Last Admin: 07/25/17 14:01 Dose: Not Given Cefazolin Sodium 2 gm/ (Dextrose) 50 mls @ 100 mls/hr IVPB Q8H [facility] Last Admin: 07/25/17 17:32 Dose: 100 mls/hr Morphine Sulfate (Morphine Extended Release Tab) 60 mg PO Q12 [facility] Last Admin: 07/25/17 09:48 Dose: 60 mg Oxycodone HCl (Oxycodone Immediate Release Tab) 30 mg PO Q6H PRN PRN Reason: Pain Last Admin: 07/25/17 14:01 Dose: 30 mg Sertraline HCl (Zoloft) 150 mg PO DAILY [facility] Last Admin: 07/25/17 09:44 Dose: 150 mg - Labs Labs: 07/24/17 08:02 07/24/17 08:02 PT 12.2 SECONDS (9.7-12.2) 07/20/17 15:03 INR 1.1 07/20/17 15:03 APTT 34 SECONDS (21-34) 07/20/17 15:03 Assessment and Plan (1) Abscess or cellulitis of knee Status: Acute (2) Knee swelling Status: Acute
--- NOTE | 2017-07-25 22:26 | CP.PCM.PN ---
Subjective - Date & Time of Evaluation Date of Evaluation: 07/25/17 - Subjective Subjective: R KNEE PAIN, NO SOB, NO CHEST PAIN, NO FEVER, NO COUGH Objective - Vital Signs/Intake and Output Vital Signs (last 24 hours): Temp Pulse Resp BP Pulse Ox 97.2 F L 77 20 120/83 98 07/25/17 16:00 07/25/17 16:00 07/25/17 16:00 07/25/17 16:00 07/25/17 16:00 Intake and Output: 07/25/17 07/26/17 18:59 06:59 Intake Total 650 550 Balance 650 550 - Medications Medications: Current Medications Acetaminophen (Tylenol 325mg Tab) 650 mg PO Q6 PRN PRN Reason: Fever >100.4 F Last Admin: 07/25/17 17:35 Dose: 650 mg Heparin Sodium (Porcine) (Heparin) 5,000 units SC Q8 [facility] Last Admin: 07/25/17 21:20 Dose: Not Given Cefazolin Sodium 2 gm/ (Dextrose) 50 mls @ 100 mls/hr IVPB Q8H [facility] Last Admin: 07/25/17 17:32 Dose: 100 mls/hr Morphine Sulfate (Morphine Extended Release Tab) 60 mg PO Q12 [facility] Last Admin: 07/25/17 21:24 Dose: 60 mg Oxycodone HCl (Oxycodone Immediate Release Tab) 30 mg PO Q6H PRN PRN Reason: Pain Last Admin: 07/25/17 20:00 Dose: 30 mg Sertraline HCl (Zoloft) 150 mg PO DAILY [facility] Last Admin: 07/25/17 09:44 Dose: 150 mg - Labs Labs: 07/24/17 08:02 07/24/17 08:02 PT 12.2 SECONDS (9.7-12.2) 07/20/17 15:03 INR 1.1 07/20/17 15:03 APTT 34 SECONDS (21-34) 07/20/17 15:03 - Constitutional Appears: Non-toxic, No Acute Distress - Head Exam Head Exam: ATRAUMATIC, NORMAL INSPECTION, NORMOCEPHALIC - Eye Exam Eye Exam: EOMI, Normal appearance, PERRL Pupil Exam: NORMAL ACCOMODATION - ENT Exam ENT Exam: Mucous Membranes Moist, Normal Exam, Normal Oropharynx, TM's Normal Bilaterally - Neck Exam Neck Exam: Normal Inspection - Respiratory Exam Respiratory Exam: Clear to Ausculation Bilateral, NORMAL BREATHING PATTERN - Cardiovascular Exam Cardiovascular Exam: REGULAR RHYTHM, +S1, +S2 - GI/Abdominal Exam GI & Abdominal Exam: Soft, Normal Bowel Sounds - Rectal Exam Rectal Exam: NORMAL INSPECTION - Extremities Exam Extremities Exam: Full ROM, Normal Capillary Refill, Normal Inspection - Neurological Exam Neurological Exam: Alert, Awake, CN II-XII Intact, Normal Gait, Oriented x3 Neuro motor strength exam: Left Upper Extremity: 5, Right Upper Extremity: 5, Left Lower Extremity: 5, Right Lower Extremity: 5 - Psychiatric Exam Psychiatric exam: Flat Affect - Skin Skin Exam: Intact Assessment and Plan (1) Septic prepatellar bursitis of right knee Status: Acute (2) Chronic back pain Status: Chronic
[2017-07-26 01:25] VITALS: TEMP 98.1; O2SAT 96
[2017-07-26] MEDS: oxyCODONE 30 mg Immediate Release Tab PO PRN ×2 (02:10→08:10)
[2017-07-26 08:31] LABS: BASO # 0.1 K/uL (0.0-0.2); BASO % 0.8 % (0.0-2.0); EOS # 0.7 K/uL (0.0-0.7); EOS % 6.7 % (0.0-4.0); HEMATOCRIT 40.8 % (35.0-51.0); LYMPH # 2.6 K/uL (1.0-4.3); LYMPH % 26.8 % (20.0-40.0); MEAN CELL VOLUME 92.4 fL (80.0-94.0); MEAN CORPUSCULAR HEMOGLOBIN 31.2 pg (27.0-31.0); MEAN CORPUSCULAR HGB CONC 33.7 g/dL (33.0-37.0); MEAN PLATELET VOLUME 8.1 fL (7.2-11.7); MONO # 0.8 K/uL (0.0-0.8); MONO % 8.6 % (0.0-10.0); RED CELL DISTRIBUTION WIDTH 13.2 % (11.5-14.5); WHITE BLOOD COUNT 9.8 K/uL (4.8-10.8)
[2017-07-26 08:32] VITALS: BP 120/75; PULSE 68
[2017-07-26 08:44] LABS: CHLORIDE 102 mmol/L (98-107); POTASSIUM 4.2 mmol/L (3.6-5.2); SODIUM 143 mmol/L (132-148)
[2017-07-26 08:47] LABS: BLOOD UREA NITROGEN 16 mg/dL (9-20); CARBON DIOXIDE 30 mmol/L (22-30); GFR AFRICAN-AMERICAN > 60
[2017-07-26 08:48] LABS: CALCIUM 8.8 mg/dl (8.6-10.4); GLUCOSE,RANDOM 78 mg/dL (75-110)
--- NOTE | 2017-07-26 09:30 | CP.PCM.PN ---
Subjective - Date & Time of Evaluation Date of Evaluation: 07/26/17 Time of Evaluation: 09:25 - Subjective Subjective: Patient states knee pain is getting better. No new complaints. Denies numbness/ tingling/CP/SOB, no new drainage. Review of Systems - Review of Systems All systems: reviewed and no additional remarkable complaints except - Constitutional Additional comments: denies - Cardiovascular Cardiovascular: UNREMARKABLE - Respiratory Respiratory: UNREMARKABLE - Gastrointestinal Gastrointestinal: UNREMARKABLE - Musculoskeletal Musculoskeletal: As Par HPI - Integumentary Integumentary: As Per HPI - Neurological Neurological: As Per HPI, UNREMARKABLE - Psychiatric Psychiatric: UNREMARKABLE - Hematologic/Lymphatic Hematologic: UNREMARKABLE Objective - Vital Signs/Intake and Output Vital Signs (last 24 hours): Temp Pulse Resp BP Pulse Ox 98.1 F 68 20 120/75 96 07/26/17 08:00 07/26/17 08:00 07/26/17 08:00 07/26/17 08:00 07/26/17 08:00 Intake and Output: 07/26/17 07/26/17 06:59 18:59 Intake Total 1000 Balance 1000 - Medications Medications: Current Medications Acetaminophen (Tylenol 325mg Tab) 650 mg PO Q6 PRN PRN Reason: Fever >100.4 F Last Admin: 07/25/17 17:35 Dose: 650 mg Heparin Sodium (Porcine) (Heparin) 5,000 units SC Q8 [facility] Last Admin: 07/26/17 06:10 Dose: Not Given Cefazolin Sodium 2 gm/ (Dextrose) 50 mls @ 100 mls/hr IVPB Q8H [facility] Last Admin: 07/26/17 02:10 Dose: 100 mls/hr Morphine Sulfate (Morphine Extended Release Tab) 60 mg PO Q12 [facility] Last Admin: 07/25/17 21:24 Dose: 60 mg Oxycodone HCl (Oxycodone Immediate Release Tab) 30 mg PO Q6H PRN PRN Reason: Pain Last Admin: 07/26/17 08:10 Dose: 30 mg Sertraline HCl (Zoloft) 150 mg PO DAILY [facility] Last Admin: 07/25/17 09:44 Dose: 150 mg - Labs Labs: 07/26/17 08:24 07/26/17 08:24 PT 12.2 SECONDS (9.7-12.2) 07/20/17 15:03 INR 1.1 07/20/17 15:03 APTT 34 SECONDS (21-34) 07/20/17 15:03 - Constitutional Appears: Well, No Acute Distress - Cardiovascular Exam Additional comments: +DP/PT pulses - Extremities Exam Additional comments: No area of fluctuance. Swelling and redness continue to improve daily. No pus, unable to express any drainage. Swelling decreased from yesterday. - Neurological Exam Neurological Exam: Alert, Awake, Oriented x3 Neuro motor strength exam: Right Lower Extremity: 5 (full ROM right knee without pain) - Psychiatric Exam Psychiatric exam: Normal Affect, Normal Mood - Skin Skin Exam: Warm Additional comments: erythema has resolved. scant serous drainage from wounds. Clean, no fibrinous exudate. Assessment and Plan (1) Septic prepatellar bursitis of right knee Assessment & Plan: Improving at this point, erythema has resolved, swelling improved daily, no abscess or collection appreciated, only small amount of serous drainage from wounds Recommendation is d/c home on PO antibiotics as per ID +MSSA patient instructed to return to ER for any increased symptoms, swelling, pain, redness d/w Dr. Scales, agrees with above patient to f/u as outpatient 5-7 days call for appointment [phone] Status: Acute
[2017-07-26] MEDS: Morphine 30 mg SR Tab PO SCH (10:15)
--- NOTE | 2017-07-27 02:39 | CP.PCM.DIS ---
Provider - Provider Date of Admission: 07/20/17 16:00 Attending physician: Michael White MD Diagnosis - Discharge Diagnosis (1) Septic prepatellar bursitis of right knee Status: Acute (2) Chronic back pain Status: Chronic Hospital Course - Lab Results Lab Results: Most Recent Lab Values WBC 9.8 K/uL (4.8-10.8) 07/26/17 08:24 RBC 4.42 Mil/uL (4.40-5.90) 07/26/17 08:24 Hgb 13.8 g/dL (12.0-18.0) 07/26/17 08:24 Hct 40.8 % (35.0-51.0) 07/26/17 08:24 MCV 92.4 fL (80.0-94.0) 07/26/17 08:24 MCH 31.2 pg (27.0-31.0) H 07/26/17 08:24 MCHC 33.7 g/dL (33.0-37.0) 07/26/17 08:24 RDW 13.2 % (11.5-14.5) 07/26/17 08:24 Plt Count 407 K/uL (130-400) H 07/26/17 08:24 MPV 8.1 fL (7.2-11.7) 07/26/17 08:24 Neut % (Auto) 57.1 % (50.0-75.0) 07/26/17 08:24 Lymph % (Auto) 26.8 % (20.0-40.0) 07/26/17 08:24 Weber % (Auto) 8.6 % (0.0-10.0) 07/26/17 08:24 Eos % (Auto) 6.7 % (0.0-4.0) H 07/26/17 08:24 Baso % (Auto) 0.8 % (0.0-2.0) 07/26/17 08:24 Neut # 5.6 K/uL (1.8-7.0) 07/26/17 08:24 Lymph # 2.6 K/uL (1.0-4.3) 07/26/17 08:24 Weber # 0.8 K/uL (0.0-0.8) 07/26/17 08:24 Eos # 0.7 K/uL (0.0-0.7) 07/26/17 08:24 Baso # 0.1 K/uL (0.0-0.2) 07/26/17 08:24 Neutrophils % (Manual) 86 % (50-75) H 07/20/17 14:59 Band Neutrophils % 1 % (0-2) 07/20/17 14:59 Lymphocytes % (Manual) 7 % (20-40) L 07/20/17 14:59 Monocytes % (Manual) 5 % (0-10) 07/20/17 14:59 Metamyelocytes % 1 % (0-0) H 07/20/17 14:59 Platelet Estimate Normal (NORMAL) 07/20/17 14:59 RBC Morphology Normal 07/20/17 14:59 ESR 55 mm/hr (0-15) H 07/22/17 16:25 PT 12.2 SECONDS (9.7-12.2) 07/20/17 15:03 INR 1.1 07/20/17 15:03 APTT 34 SECONDS (21-34) 07/20/17 15:03 Sodium 143 mmol/L (132-148) 07/26/17 08:24 Potassium 4.2 mmol/L (3.6-5.2) 07/26/17 08:24 Chloride 102 mmol/L (98-107) 07/26/17 08:24 Carbon Dioxide 30 mmol/L (22-30) 07/26/17 08:24 Anion Gap 15 (10-20) 07/26/17 08:24 BUN 16 mg/dL (9-20) 07/26/17 08:24 Creatinine 0.7 MG/DL (0.8-1.5) L 07/26/17 08:24 Est GFR ( Amer) > 60 07/26/17 08:24 Est GFR (Non-Af Amer) > 60 07/26/17 08:24 Random Glucose 78 mg/dL (75-110) 07/26/17 08:24 Calcium 8.8 mg/dl (8.6-10.4) 07/26/17 08:24 Total Bilirubin 0.6 mg/dL (0.2-1.3) 07/20/17 14:59 AST 35 U/L (17-59) 07/20/17 14:59 ALT 40 U/L (21-72) 07/20/17 14:59 Alkaline Phosphatase 113 U/L (38-126) 07/20/17 14:59 Total Protein 6.4 g/dL (6.3-8.3) 07/20/17 14:59 Albumin 3.4 g/dL (3.5-5.0) L 07/20/17 14:59 Globulin 3.0 gm/dL (2.2-3.9) 07/20/17 14:59 Albumin/Globulin Ratio 1.1 (1.0-2.1) 07/20/17 14:59 Vancomycin Trough 13.2 ug/mL (5.0-10.0) H 07/22/17 08:34 Urine Opiates Screen Positive (NEGATIVE) 07/21/17 10:59 Urine Methadone Screen Negative (NEGATIVE) 07/21/17 10:59 Ur Barbiturates Screen Negative (NEGATIVE) 07/21/17 10:59 Ur Phencyclidine Scrn Negative (NEGATIVE) 07/21/17 10:59 Ur Amphetamines Screen Negative (NEGATIVE) 07/21/17 10:59 U Benzodiazepines Scrn Negative (NEGATIVE) 07/21/17 10:59 U Oth Cocaine Metabols Negative (NEGATIVE) 07/21/17 10:59 U Cannabinoids Screen Negative (NEGATIVE) 07/21/17 10:59 Hepatitis A IgM Ab Negative (NEGATIVE) 07/22/17 08:34 Hep Bs Antigen Negative (NEGATIVE) 07/22/17 08:34 Hep B Core IgM Ab Negative (NEGATIVE) 07/22/17 08:34 Hepatitis C Antibody Negative (NEGATIVE) 07/22/17 08:34 HIV 1&2 Antibody Screen Negative (NEGATIVE) 07/22/17 08:34 - Hospital Course Hospital Course: ADMITTED WITH R LEG WOUND C/S MSSA, AND HE WAS GIVEN IV ANTIBIOTICS AND IS FRO DISCHARGE Discharge Exam - Head Exam Head Exam: ATRAUMATIC, NORMAL INSPECTION, NORMOCEPHALIC - Eye Exam Eye Exam: EOMI, Normal appearance, PERRL Pupil Exam: NORMAL ACCOMODATION - ENT Exam ENT Exam: Mucous Membranes Moist, Normal Exam - Neck Exam Neck exam: Normal Inspection - Respiratory Exam Respiratory Exam: NORMAL BREATHING PATTERN - Cardiovascular Exam Cardiovascular Exam: REGULAR RHYTHM, +S1, +S2 - GI/Abdominal Exam GI & Abdominal Exam: Normal Bowel Sounds - Rectal Exam Rectal Exam: NORMAL INSPECTION - Neurological Exam Neurological exam: Alert, CN II-XII Intact, Normal Gait, Oriented x3, Reflexes Normal - Psychiatric Exam Psychiatric exam: Normal Affect, Normal Mood - Skin Skin Exam: Intact (R KNEE WOUND WITH LESS DISCHARGE) Discharge Plan - Discharge Medications Prescriptions: Cephalexin [cephalexin] 500 mg PO TID #21 cap Morphine [MS Contin] 60 mg PO DAILY #5 Oxycodone HCl [Oxycodone HCl ER] 60 mg PO DAILY #5 - Follow Up Plan Condition: FAIR Disposition: HOME/ ROUTINE Instructions: Cephalexin (By mouth), Oxycodone, Slow Release (By mouth), Cellulitis (DC), Abscess (GEN) Referrals: Michael White MD [Staff Provider] -
== END 2017-07-26 13:10 | disposition home or self-care (01) | DRG 558 ==
LOC: C.ER 13:49 → C.3T 16:00
PROVIDERS: ADMIT Internal Medicine; ATTEND Internal Medicine
DX: M71.061 Abscess of bursa, right knee (principal); L03.115 Cellulitis of right lower limb; I10 Essential (primary) hypertension; B95.61 Methicillin susceptible Staphylococcus aureus infection as the cause of diseases classified elsewhere; E78.00 Pure hypercholesterolemia, unspecified; F31.9 Bipolar disorder, unspecified; F43.10 Post-traumatic stress disorder, unspecified; F60.9 Personality disorder, unspecified; G89.29 Other chronic pain; F20.9 Schizophrenia, unspecified; Z90.49 Acquired absence of other specified parts of digestive tract; Z98.1 Arthrodesis status

== ENCOUNTER 2018-03-11 21:12 | Emergency (ER) | payer MEDICARE, MEDICAID ==
[2018-03-11 21:21] VITALS: BMI 25.7
[2018-03-11 21:32] VITALS: TEMP 98.7
[2018-03-11] MEDS ORDERED: Naloxone 0.4 mg/ml Inj (Adult) SC ONE (21:42)
--- NOTE | 2018-03-11 21:42 | C.PDOC ---
Time Seen by Provider: 03/11/18 21:21 Chief Complaint (Nursing): Psychiatric Evaluation Past Medical History Vital Signs: Last Vital Signs Temp 98.7 F 03/11/18 21:21 Pulse 96 H 03/11/18 22:27 Resp 18 03/11/18 22:27 BP 123/91 H 03/11/18 22:27 Pulse Ox 94 L 03/11/18 22:27 - Medical History PMH: Anxiety, Back Problems (spinal fusion), Bipolar Disorder, Depression, HTN, Hypercholesterolemia, Personality Disorder, Post Traumatic Stress Disorder, Schizophrenia, Chronic Pain (back) Denies: Chronic Kidney Disease Surgical History: Appendectomy, Back Surgery, Tonsillectomy Family History: States: Unknown Family Hx - Social History Hx Tobacco Use: Yes Hx Alcohol Use: No Hx Substance Use: Yes (opiates) - Immunization History Hx Tetanus Toxoid Vaccination: No Hx Influenza Vaccination: Yes Hx Pneumococcal Vaccination: No ED Course And Treatment O2 Sat by Pulse Oximetry: 94 Medical Decision Making Medical Decision Making: continued narcotics abuse reversed w narcan sat extended period in ED, coherent, ate a meal, wants to be d/c no detox beds available [place] SPECIAL EDUCATOR reviewed, former oxycodone and PO morphine from Pain management, but lost to f/u since 12/05 current heroine intranasal will connect w outpatient psych Disposition Doctor Will See Patient In The: Office Counseled Patient/Family Regarding: Studies Performed, Diagnosis - Disposition Disposition: HOME/ ROUTINE Disposition Time: 22:39 Condition: GOOD Forms: [facility] (Irish) - Clinical Impression Clinical Impression: Narcotic abuse
[2018-03-11] MEDS ORDERED: Naloxone 0.4 mg/ml Inj (Adult) ONE (21:47)
[2018-03-11 22:09] VITALS: RESP 18
[2018-03-11 22:28] VITALS: BP 123/91; PULSE 96; O2SAT 94
== END 2018-03-11 22:49 | disposition home or self-care (01) ==
LOC: C.ER 21:12
DX: F11.10 Opioid abuse, uncomplicated (principal); E78.00 Pure hypercholesterolemia, unspecified; F20.9 Schizophrenia, unspecified; I10 Essential (primary) hypertension; Z72.0 Tobacco use
CPT/HCPCS: 82948; 96372; 99284; J2310

== ENCOUNTER 2018-07-22 16:44 | Inpatient (IN) | payer MEDICARE, MEDICAID ==
[2018-07-22 16:44] VITALS: BMI 25.7
--- NOTE | 2018-07-22 17:11 | C.PDOC ---
History Of Present Illness <Hope Renae - Last Filed: 07/22/18 18:57> <Apoorva Flores - Last Filed: 07/22/18 19:37> 47yo male, schizophrenia, bipolar comes to ER seeking detox from heroin use. Patient states he started with overusing his opioid pain killers s/p a spinal fusion and then moved on to heroin.(+) IV drug abuse . (+)last use was yesterday night. Admits to being non-compliant with medication for 1 year. No suicidal or homicidal ideation. No medical complaints at present. (Hope Renae) History Per: Patient History/Exam Limitations: no limitations Onset/Duration Of Symptoms: Persistent Current Symptoms Are (Timing): Still Present Modifying Factor(s): Narcotics Associated Symptoms: denies: Suicidal Thoughts, Suicidal Plan <DialloHope oseguera - Last Filed: 07/22/18 18:57> <Apoorva Flores - Last Filed: 07/22/18 19:37> Time Seen by Provider: 07/22/18 16:54 Chief Complaint (Nursing): Substance Abuse Past Medical History Reviewed: Historical Data, Nursing Documentation, Vital Signs - Medical History PMH: Anxiety, Asthma, Back Problems (spinal fusion), Bipolar Disorder, Depression, HTN, Hypercholesterolemia, Personality Disorder, Post Traumatic Stress Disorder, Schizophrenia, Chronic Pain (back) Denies: Chronic Kidney Disease Surgical History: Appendectomy, Back Surgery, Tonsillectomy Family History: States: Unknown Family Hx - Social History Hx Tobacco Use: Yes Hx Alcohol Use: No Hx Substance Use: Yes (HEROIN,SNIFF, DAILY, 6-7 BAGS) - Immunization History Hx Tetanus Toxoid Vaccination: No Hx Influenza Vaccination: Yes Hx Pneumococcal Vaccination: No <Hope Renae - Last Filed: 07/22/18 18:57> Vital Signs: Last Vital Signs Temp 98.1 F 07/22/18 16:57 Pulse 79 07/22/18 16:57 Resp 16 07/22/18 16:57 BP 123/80 07/22/18 16:57 Pulse Ox 98 07/22/18 19:00 Review Of Systems Constitutional: Negative for: Fever Cardiovascular: Negative for: Chest Pain Respiratory: Negative for: Shortness of Breath Gastrointestinal: Negative for: Abdominal Pain Psych: Positive for: Depression. Negative for: Suicidal ideation <DialloJairo osegueraov - Last Filed: 07/22/18 18:57> Physical Exam - Physical Exam Appears: Non-toxic, No Acute Distress, Other (anxious) Skin: Warm, Other ((+) track camejo) Head: Atraumatic, Normacephalic Eye(s): bilateral: Normal Inspection, EOMI Nose: Normal Oral Mucosa: Moist Neck: Normal ROM, Supple Chest: Symmetrical Cardiovascular: Rhythm Regular Respiratory: Normal Breath Sounds Gastrointestinal/Abdominal: Normal Exam, Soft Back: Normal Inspection Extremity: Normal ROM Neurological/Psych: Oriented x3, Normal Speech <Hope Renae - Last Filed: 07/22/18 18:57> ED Course And Treatment - Laboratory Results Result Diagrams: 07/22/18 17:18 07/22/18 17:18 O2 Sat by Pulse Oximetry: 98 (RA) Pulse Ox Interpretation: Normal Progress Note: Labs, UA and crisis evaluation ordered. Hematuria noted in UA and patient informed of findings and instructed to follow up with urologist. Case endorsed to Dr Flores pending crisis evaluation. <Hope Renae - Last Filed: 07/22/18 18:57> - Laboratory Results Result Diagrams: 07/22/18 17:18 07/22/18 17:18 <Apoorva Flores - Last Filed: 07/22/18 19:37> Disposition - Disposition Disposition Time: 18:59 <BatoolHope Last Filed: 07/22/18 18:57> Discussed With : Jorje Acuna Comment: accepted the pt on his service and took over the care at 7:36 PM Doctor Will See Patient In The: Hospital Counseled Patient/Family Regarding: Studies Performed, Diagnosis <Apoorva Flores - Last Filed: 07/22/18 19:37> - Disposition Disposition: HOSPITALIZED Condition: FAIR Forms: [facility] (Mongolian) - Clinical Impression Clinical Impression: Opioid dependence, OCD (obsessive compulsive disorder), Major depressive disorder, recurrent, unspecified - PA / ENGINE ROOM HELPER / Resident Statement MD/DO has reviewed & agrees with the documentation as recorded. - Scribe Statement The provider has reviewed the documentation as recorded by the Scribe <Hope Renae - Last Filed: 09/04/18 18:57> <Apoorva Flores - Last Filed: 07/22/18 19:37> - Scribe Statement Smiley Gil All medical record entries made by the Wilberibe were at my direction and personally dictated by me. I have reviewed the chart and agree that the record accurately reflects my personal performance of the history, physical exam, medical decision making, and the department course for this patient. I have also personally directed, reviewed, and agree with the discharge instructions and disposition. (Hope Renae) Decision To Admit <Hope Renae - Last Filed: 07/22/18 18:57> - Pt Status Changed To: Hospital Disposition Of: Inpatient - Admit Certification Admit to Inpatient:: After my assessment, the patient will require hospitalization for at least two midnights. This is because of the severity of symptoms shown, intensity of services needed, and/or the medical risk in this patient being treated as an outpatient. - InPatient: Physician Admission Certification: I certify that this patient requires 2 or more midnights of care for the following reason:: After my assessment, the patient will require hospitalization for at least two midnights. This is because of the severity of symptoms shown, intensity of services needed, and/or the medical risk in this patient being treated as an outpatient. - . Bed Request Type: Detox Admitting Physician: Jorje Acuna <Apoorva Flores - Last Filed: 07/22/18 19:37> - . Patient Diagnosis: Opioid dependence, OCD (obsessive compulsive disorder), Major depressive disorder, recurrent, unspecified
[2018-07-22 17:21] LABS: BASO # 0.1 K/uL (0.0-0.2); BASO % 0.6 % (0.0-2.0); EOS # 0.4 K/uL (0.0-0.7); EOS % 3.7 % (0.0-4.0); HEMOGLOBIN 12.9 g/dL (12.0-18.0); LYMPH # 3.3 K/uL (1.0-4.3); LYMPH % 30.1 % (20.0-40.0); MEAN CORPUSCULAR HEMOGLOBIN 30.2 pg (27.0-31.0); MEAN CORPUSCULAR HGB CONC 33.7 g/dL (33.0-37.0); MONO # 0.9 K/uL (0.0-0.8); MONO % 7.8 % (0.0-10.0); NEUT # 6.3 K/uL (1.8-7.0); NEUT % 57.8 % (50.0-75.0); RBC 4.28 Mil/uL (4.40-5.90); RED CELL DISTRIBUTION WIDTH 13.5 % (11.5-14.5)
[2018-07-22 17:22] LABS: MEAN CELL VOLUME 89.6 fL (80.0-94.0)
[2018-07-22 17:34] LABS: ALB/GLOB RATIO 1.4 (1.0-2.1); ALBUMIN 3.9 g/dL (3.5-5.0); ALT/SGPT 31 U/L (21-72); AST/SGOT 23 U/L (17-59); BLOOD UREA NITROGEN 16 mg/dL (9-20); CALCIUM 9.1 mg/dl (8.6-10.4); GFR NON-AFRICAN AMERICAN > 60
[2018-07-22 17:34] LABS: SQUAMOUS EPITHIAL < 1 /hpf (0-5); URINE BACTERIA RARE (<OCC); URINE BILIRUBIN NEGATIVE (NEGATIVE); URINE BLOOD 1+ (NEGATIVE); URINE CALCIUM OXALATE CRYSTALS OCC /hpf (<OCC); URINE CLARITY Hazy (Clear); URINE GLUCOSE (UA) NORMAL (Normal); URINE LEUKOCYTE ESTERASE NEG Leu/uL (Negative); URINE PROTEIN 1+ mg/dL (NEGATIVE)
[2018-07-22 17:35] LABS: URINE COLOR YELLOW (YELLOW)
[2018-07-22 18:00] LABS: BARBITURATES, UR NEGATIVE (NEGATIVE); BENZODIAZEPINES, UR NEGATIVE (NEGATIVE); PHENCYCLIDINE, UR NEGATIVE (NEGATIVE)
[2018-07-22 18:02] LABS: OPIATES, UR POSITIVE (NEGATIVE)
--- NOTE | 2018-07-22 20:10 | PCM.BM ---
<Jacques Cummins - Last Filed: 07/22/18 20:09> Treatment Plan Problems - Problems identified on initial assessmt potential for opiate withdrawal Date Initiated: 07/22/18 Time Initiated: 20:10 Status: Active Treatment assets and liabiliti Patient Assests: cognitively intact Patient Liabilities: substance abuse, medical problems - Milieu Protocol Maintain good personal hygiene: daily Encourage regular showers, daily Remind patient to perform daily oral care, daily Assist patient to perform ADL's Conduct patient checks and document Observation sheet: Q15 minutes Maintain personal safety: every shift Educate patient to report safety concerns to staff, every shift Monitor environment for contraband/sharps Medication safety: Monitor for expected outcome, potential side effects: every shift, Assess barriers to learning: every shift, Assess readiness for medication education: every shift <Susie Magdaleno - Last Filed: 07/23/18 14:36> Family Contact Family involvement: Famliy/SO not involved - Goals for Treatment Patient goals for treatment: Complete detox and transition to pain management doctor. Discharge/Continuing Care - Education Needs Education Needs: Patient Medication, Patient Diagnosis/Disease Process, Patient Coping Skills, Patient Anger Management skills, Patient Placement options, Patient Community resources - Discharge Discharge Criteria: No longer exhibiting s/s of withdrawal, Reduction of target symptoms Discharge to:: Home - Treatment Team Participation Patient/Family/SO Statement: 07/23/18 14:37 "I need to go back to pain management..." Discussed with Family/SO: No Was Patient/Family/SO present at Treatment Team Meeting: Yes <Vernell Sanchez - Last Filed: 07/23/18 14:42> - Diagnosis (1) Opioid dependence Status: Acute Interventions: 07/23/18 14:41 * Assess 7x/week regarding severity of withdrawal * Educate regarding risks, benefits, side effects and alternatives of medications * Use Motivational Interviewing for abstinence * Use CBT for relapse prevention * Medication management for withdrawal symptoms * Encourage medication assisted treatment *
[2018-07-22] MEDS ORDERED: Aluminum Hydroxide/Magnesium Hydroxide Susp (30 mL) PO PRN (22:03)
[2018-07-23 13:18] VITALS: RESP 18
--- NOTE | 2018-07-23 14:41 | PCM.PSYCH ---
Initial Psychiatric Evaluation - Initial Psychiatric Evaluation Type of Admission: Voluntary Legal Status: Capacity Chief Complaint (in patient's own words): "I don't feel well" History of Present Illness and Precipitating Events: Pt is a 47 year old WM who is , and has no kids. He lives in an apartment with his . He is currently unemployed and on disability. Pt presenting for heroin detoxification. The last time he used it as yesterday, and he uses about 7-8 bags/day (intranasally). Prior to this, he had a spinal surgery in 2009 and his physician gave him oxycodone (30 mg) 4 times/day to manage his low back pain, but was abruptly discontinued 6-7 months ago, and he subsequently switched to heroin. This is the pt's first detoxification. Pt smokes cigarettes occasionally 1-2 cigarettes/day. He denies any current alcohol use but he is positive for cocaine and snorts it He was also on Xanax and he had a seizure in the past - he claims he is prescribed He was Narcan'ed from heroin the past. Psych: Pt confirms depression, weight loss (lost 40 lbs within the past 6 months ) and anxiety. History is notable for bipolar disorder, OCD, and agoraphobia. He used Xanax, and quetiapine. Pt denies SI/HI, auditory or visual hallucinations. Family psych Hx: Pt's cousins are diagnosed with either schizophrenia or bipolar disorder. Medical Hx: Few months ago pt had an infection of the knee, and he underwent debridement and was given oxycodone (30 mg). Physician was Dr. Anderson. He has HTN but unmedicated Current Medications: Active Medications Generic Name Dose Route Start Last Admin Trade Name Freq PRN Reason Stop Dose Admin Al Hydrox/Mg Hydrox/Simethicone 30 ml 07/22/18 22:03 Maalox 30 Ml PO TID PRN Indigestion / Heartburn Clonidine HCl 0.1 mg 07/22/18 22:01 Catapres PO Q8 PRN COWS Score More or Equal to 5 Dicyclomine HCl 20 mg 07/22/18 22:04 Bentyl PO Q6 PRN Abdominal Cramps Ibuprofen 400 mg 07/22/18 22:04 Motrin Tab PO Q6 PRN Pain, moderate (4-7) Loperamide HCl 2 mg 07/22/18 22:03 Imodium PO Q8 PRN Diarrhea Methadone HCl 15 mg 07/23/18 10:00 07/23/18 09:42 Methadone PO 07/26/18 09:59 15 mg Q24H FRANCIE Administration Taper Ondansetron HCl 4 mg 07/22/18 22:03 Zofran Tab PO Q8 PRN Nausea/Vomiting Quetiapine Fumarate 100 mg 07/23/18 22:00 Seroquel PO HS FRANCIE Trazodone HCl 100 mg 07/23/18 10:14 Desyrel PO HS PRN Insomnia Past Psychiatric History - Past Psychiatric History Previous Treatment History: Intensive Outpatient Pertinent Medical Hx (Current Medical&Sleep Prob, Allergies): Allergies Allergy/AdvReac Type Severity Reaction Status Date / Time No Known Allergies Allergy Verified 03/11/18 21:19 No Known Home Med 07/22/18 Review of Systems - Neurological Neurological: UNREMARKABLE - Psychiatric Psychiatric: Abnormal Sleep Pattern, Anhedonia, Anxiety, Behavioral Changes, Change in Appetite, Depression, Irritability, Mood Swings, Panic Attacks. absent: Homicidal Ideation, Paranoia, Suicidal Ideation Mental Status Examination - Personal Presentation Personal Presentation: Looks older than stated age (heavily tattooed, thin) - Affect Affect: Constricted - Motor Activity Motor Activity: Calm - Reliability in Providing Information Reliability in Providing Information: Fair - Speech Speech: Organized - Mood Mood: Depressed, Anxious - Formal Thought Process Formal Thought Process: No Impairment - Cognitive Functions Orientation: Person, Place, Situation, Time Sensorium: Alert Attention/Concentration: Easily distracted Abstract Thinking: [place] Estimate of Intelligence: Average Judgement: Intact, as evidence by: Insight regarding need for hospitalization Memory: Recent intact, as evidence by: Ability to recall events of the day, Remote intact, as evidenced by: Abilit to recall sig. life events - Risk Risk: Seizure, Withdrawal, Diminished functioning - Strength & Assets Inventory Strength & Assets Inventory: Cooperative - Limitations Limitations: Living alone, Other DSM 5 DX - DSM 5 DSM 5 Diagnosis: Opioid withdrawal Opioid use disorder, severe Cocaine use d/o - moderate Major depressive d/o- moderate r/o personality d/o - unspecified [id number] - Recommended/Plan of Treatment Treatment Recommendations and Plan of Treatment: Taper with methadone Gabapentin for augmentation Seroquel for sleep As needed medications All risks, benefits and alternatives of the meds discussed, and the pt agreed and understood. Attend groups and activities Supportive therapy and psychoeducation MT for abstinence CBT for relapse prevention Encourage MAT Refer to rehab or IOP, and self-help groups Smoking cessation with MT Nicotine patch if needed 33 min Projected ELOS: 4 days Prognosis: good w treatment - Smoking Cessation Smoking Cessation Initiated: Yes
--- NOTE | 2018-07-24 14:37 | PCM.PYCHPN ---
Psychiatric Progress Note - Psychiatric Progress Note Patient seen today, length of contact: 16 min Patient Chief Complaint: "I have muscle pain" Problems Identified/Issues Discussed: The pt is seen, chart reviewed, case discussed with staff. The pt is compliant with medications and reports no side-effects. Symptoms are improving but needs more time to stabilize. Pt attends groups and activities. Support given, psycho-education provided. After care discussed. Medication Change: Yes (detox changes daily, add flexeril) Medical Record Reviewed: Yes Mental Status Examination - Cognitive Function Orientation: Person, Place, Situation, Time Memory: Intact Attention: Poor Concentration: Poor Association: WNL Fund of Knowledge: WNL - Mood Mood: Depressed, Anxious - Affect Affect: Constricted - Speech Speech: Appropriate - Formal Thought Process Formal Thought Process: No Impairment - Suicidal Ideation Suicidal Ideation: No - Homicidal Ideation Homicidal Ideation: No Goal/Treatment Plan - Goal/Treatment Plan Need for Continued Stay: Discharge may exacerbated symptoms, Severe functional impairment Progress Toward Problem(s) and Goals/Treatment Plan: Taper with methadone Gabapentin for augmentation Seroquel for sleep As needed medications All risks, benefits and alternatives of the meds discussed, and the pt agreed and understood. Attend groups and activities Supportive therapy and psychoeducation MS for abstinence CBT for relapse prevention Encourage MAT Refer to rehab or IOP, and self-help groups Smoking cessation with MS Nicotine patch if needed Refer to dr cook as new PCP
[2018-07-25 08:31] VITALS: BP 149/87; PULSE 76; TEMP 98.5; O2SAT 99
--- NOTE | 2018-07-25 09:06 | PCM.PYCHDC ---
Mental Status Examination - Mental Status Examination Orientation: Person, Place, Situation, Time Memory: Intact Mood: Neutral Affect: Constricted Speech: Soft Attention: WNL Concentration: WNL Association: WNL Fund of Knowledge: WNL Formal Thought Process: No Impairment Description of patient's judgement and insight: good, fair Psychotic Thoughts and Behaviors: Denies any AVH Suicidal Ideation: No Current Homicidal Ideation?: No Discharge Summary - Discharge Note Reason for Hospitalization: Pt is a 47 year old WM who is , and has no kids. He lives in an apartment with his . He is currently unemployed and on disability. Pt presenting for heroin detoxification. The last time he used it as yesterday, and he uses about 7-8 bags/day (intranasally). Prior to this, he had a spinal surgery in 2009 and his physician gave him oxycodone (30 mg) 4 times/day to manage his low back pain, but was abruptly discontinued 6-7 months ago, and he subsequently switched to heroin. This is the pt's first detoxification. Pt smokes cigarettes occasionally 1-2 cigarettes/day. He denies any current alcohol use but he is positive for cocaine and snorts it He was also on Xanax and he had a seizure in the past - he claims he is prescribed He was Narcan'ed from heroin the past. Psych: Pt confirms depression, weight loss (lost 40 lbs within the past 6 months ) and anxiety. History is notable for bipolar disorder, OCD, and agoraphobia. He used Xanax, and quetiapine. Pt denies SI/HI, auditory or visual hallucinations. Family psych Hx: Pt's cousins are diagnosed with either schizophrenia or bipolar disorder. Medical Hx: Few months ago pt had an infection of the knee, and he underwent debridement and was given oxycodone (30 mg). Physician was Dr. Anderson. He has HTN but unmedicated Consultations:: List each consultation separately and include: 1. Reason for request. 2. Findings. 3. Follow-up Summary of Hospital Course include:: 1. Description of specific treatment plan utilized for patients during their course of treatmen. 2. Summarize the time- course for resolution of acute symptoms and/or regressed behaviors. 3. Describe issues identified and worked on during hospitalization. 4. Describe medication utilized. 5. Describe medical problems identified and treated. 6. Reassessment of suicide risk - Final Diagnosis (DSM 5) Condition upon Discharge: FAIR DSM 5: Opioid withdrawal Opioid use disorder, severe Cocaine use d/o - moderate Major depressive d/o- moderate r/o personality d/o - unspecified [id number] Disposition: HOME/ ROUTINE Prescriptions/Medication Reconciliation: Cyclobenzaprine [Flexeril] 5 mg PO BID #60 tab Gabapentin [Neurontin] 400 mg PO TID #90 cap QUEtiapine [Seroquel] 100 mg PO HS #30 tab
== END 2018-07-25 11:55 | disposition home or self-care (01) | DRG 895 ==
LOC: C.ER 16:44 → C.7D 19:34
PROC: HZ2ZZZZ Detoxification Services for Substance Abuse Treatment (ICD-10-PCS; principal; 2018-07-22)
PROC: HZ59ZZZ Individual Psychotherapy for Substance Abuse Treatment, Supportive (ICD-10-PCS; 2018-07-22)
PROC: GZ3ZZZZ Medication Management (ICD-10-PCS; 2018-07-22)
PROC: HZ80ZZZ Medication Management for Substance Abuse Treatment, Nicotine Replacement (ICD-10-PCS; 2018-07-22)
PROC: HZ46ZZZ Group Counseling for Substance Abuse Treatment, Psychoeducation (ICD-10-PCS; 2018-07-22)
PROC: GZHZZZZ Group Psychotherapy (ICD-10-PCS; 2018-07-22)
PROC: GZ56ZZZ Individual Psychotherapy, Supportive (ICD-10-PCS; 2018-07-22)
DX: F11.23 Opioid dependence with withdrawal (principal); F33.1 Major depressive disorder, recurrent, moderate; F14.90 Cocaine use, unspecified, uncomplicated; F17.210 Nicotine dependence, cigarettes, uncomplicated; F42.9 Obsessive-compulsive disorder, unspecified; F43.10 Post-traumatic stress disorder, unspecified; F60.9 Personality disorder, unspecified; I10 Essential (primary) hypertension; J45.909 Unspecified asthma, uncomplicated; F31.9 Bipolar disorder, unspecified; F20.9 Schizophrenia, unspecified; E78.00 Pure hypercholesterolemia, unspecified; F40.00 Agoraphobia, unspecified; Z91.14 Patient's other noncompliance with medication regimen; Z98.1 Arthrodesis status

== ENCOUNTER 2018-11-07 22:22 | Emergency (ER) | payer MEDICARE, MEDICAID ==
[2018-11-07 22:23] VITALS: BMI 21.1
[2018-11-08 00:07] LABS: BASO # 0.1 K/uL (0.0-0.2); BASO % 1.2 % (0.0-2.0); EOS # 0.2 K/uL (0.0-0.7); EOS % 1.4 % (0.0-4.0); HEMOGLOBIN 13.8 g/dL (12.0-18.0); LYMPH # 2.9 K/uL (1.0-4.3); LYMPH % 24.8 % (20.0-40.0); MEAN CELL VOLUME 91.4 fL (80.0-94.0); MEAN CORPUSCULAR HEMOGLOBIN 30.8 pg (27.0-31.0); MEAN CORPUSCULAR HGB CONC 33.7 g/dL (33.0-37.0); MEAN PLATELET VOLUME 8.8 fL (7.2-11.7); MONO # 0.8 K/uL (0.0-0.8); MONO % 6.5 % (0.0-10.0); NEUT # 7.7 K/uL (1.8-7.0); NEUT % 66.1 % (50.0-75.0); RBC 4.48 Mil/uL (4.40-5.90); RED CELL DISTRIBUTION WIDTH 14.2 % (11.5-14.5); WHITE BLOOD COUNT 11.7 K/uL (4.8-10.8)
[2018-11-08 00:18] LABS: ALB/GLOB RATIO 1.4 (1.0-2.1); ALT/SGPT 32 U/L (21-72); AST/SGOT 33 U/L (17-59); BLOOD UREA NITROGEN 16 mg/dL (9-20); CALCIUM 8.8 mg/dl (8.6-10.4); GFR NON-AFRICAN AMERICAN > 60
[2018-11-08 00:26] LABS: BARBITURATES, UR NEGATIVE (NEGATIVE); BENZODIAZEPINES, UR NEGATIVE (NEGATIVE); PHENCYCLIDINE, UR NEGATIVE (NEGATIVE); URINE BILIRUBIN NEGATIVE (NEGATIVE); URINE CLARITY Clear (Clear); URINE COLOR YELLOW (YELLOW); URINE GLUCOSE (UA) Normal (Normal)
[2018-11-08 00:27] LABS: URINE BLOOD NEGATIVE (NEGATIVE); URINE LEUKOCYTE ESTERASE NEGATIVE Leu/uL (Negative); URINE PROTEIN NEGATIVE (NEGATIVE); URINE UROBILINOGEN Normal mg/dL (0.2-1.0)
[2018-11-08 00:50] LABS: OPIATES, UR POSITIVE (NEGATIVE)
[2018-11-08 00:54] VITALS: BP 127/83; PULSE 97; RESP 20; TEMP 98.7; O2SAT 95
--- NOTE | 2018-11-08 03:19 | C.PDOC ---
History Of Present Illness 48 y/o male pt presents to the ER c/o right elbow pain after a fall. Pt wants a detox for heroin. Last dose is this evening. Pt has no other physical complaints. Time Seen by Provider: 11/07/18 22:42 Chief Complaint (Nursing): Substance Abuse History Per: Patient History/Exam Limitations: no limitations Onset/Duration Of Symptoms: Days Current Symptoms Are (Timing): Still Present Past Medical History Reviewed: Historical Data, Nursing Documentation, Vital Signs Vital Signs: Last Vital Signs Temp 98.7 F 11/08/18 00:54 Pulse 97 H 11/08/18 00:54 Resp 20 11/08/18 00:54 BP 127/83 11/08/18 00:54 Pulse Ox 95 11/08/18 00:54 - Medical History PMH: Anxiety, Asthma, Back Problems (spinal fusion), Bipolar Disorder, Depressio n, HTN, Hypercholesterolemia, Personality Disorder, Post Traumatic Stress Disorder, Schizophrenia, Chronic Pain (back) Denies: Hepatitis, HIV Surgical History: Appendectomy, Back Surgery, Tonsillectomy - [facility] Procedures DETOXIFICATION SERVICES FOR SUBSTANCE ABUSE TREATMENT (07/22/18) GROUP ELECTRIC STOP INSTALLER FOR SUBSTANCE ABUSE TREATMENT, PSYCHOEDUCATION (07/22/18) GROUP PSYCHOTHERAPY (07/22/18) INDIV PSYCHOTHERAPY FOR SUBSTANCE ABUSE TREATMENT, SUPPORT (07/22/18) INDIVIDUAL PSYCHOTHERAPY, SUPPORTIVE (07/22/18) MEDICATION MANAGEMENT (07/22/18) MEDS MGMT FOR SUBSTANCE ABUSE TREATMENT, NICOTINE REPLACE (07/22/18) Family History: States: Unknown Family Hx - Social History Hx Tobacco Use: Yes Hx Alcohol Use: Yes Hx Substance Use: Yes - Immunization History Hx Tetanus Toxoid Vaccination: No Hx Influenza Vaccination: Yes Hx Pneumococcal Vaccination: No Review Of Systems Except As Marked, All Systems Reviewed And Found Negative. Constitutional: Positive for: Other (request detox for heroin). Negative for: Fever, Chills Cardiovascular: Negative for: Chest Pain Respiratory: Negative for: Cough, Shortness of Breath Gastrointestinal: Negative for: Nausea, Vomiting Genitourinary: Negative for: Dysuria Musculoskeletal: Positive for: Other (right elbow pain ). Negative for: Neck Pain, Back Pain Neurological: Negative for: Weakness Physical Exam - Physical Exam Appears: Non-toxic, No Acute Distress Skin: Warm, Dry Head: Normacephalic Eye(s): bilateral: Normal Inspection, EOMI Chest: Symmetrical Cardiovascular: Rhythm Regular Respiratory: Normal Breath Sounds Gastrointestinal/Abdominal: Soft, No Tenderness Extremity: Normal ROM (FROM), Tenderness (lateral aspect of right elbow ), No Deformity, Swelling (lateral aspect of right elbow ) Pulses: Right Radial: Normal Neurological/Psych: Oriented x3, Normal Speech ED Course And Treatment - Laboratory Results Result Diagrams: 11/08/18 00:02 11/08/18 00:02 O2 Sat by Pulse Oximetry: 95 (RA) Pulse Ox Interpretation: Normal Medical Decision Making Medical Decision Making: Impression: right elbow pain and requesting detox for heroin plans: -- chem labs -- blood work -- right elbow XR -- UA Disposition - Disposition Referrals: [facility] [address] [facility] [Outside] [facility] [Outside] Disposition: HOME/ ROUTINE Disposition Time: 23:30 Condition: GOOD Additional Instructions: STEPHANIE ORELLANA, thank you for letting us take care of you today. The emergency medical care you received today was directed at your acute symptoms. If you were prescribed any medication, please fill it and take as directed. It may take several days for your symptoms to resolve. Return to the Emergency Department if your symptoms worsen, do not improve, or if you have any other problems. Please contact your doctor or call one of the physicians/clinics you have been referred to that are listed on the Patient Visit Information form that is included in your discharge packet. Bring any paperwork you were given at [facility] with you along with any medications you are taking to your follow up visit. Our treatment cannot replace ongoing medical care by a primary care provider outside of the emergency department. Thank you for allowing the [employer] team to be part of your care today. Follow up using the information given to you by our crisis team. Follow up with our clinic next week for medical evaluation. Instructions: Drug Abuse and Drug Addiction (DC) Forms: [employer] (Tanzanian) - Clinical Impression Clinical Impression: Drug dependence - Scribe Statement The provider has reviewed the documentation as recorded by the Avni Ritter Do Provider Attestation: All medical record entries made by the Scribe were at my direction and personally dictated by me. I have reviewed the chart and agree that the record accurately reflects my personal performance of the history, physical exam, medical decision making, and the department course for this patient. I have also personally directed, reviewed, and agree with the discharge instructions and disposition.
--- NOTE | 2018-11-08 12:39 | RAD ---
Date of service: 11/07/2018 PROCEDURE: Radiographs of the right elbow. HISTORY: s/p fall - r/o fx COMPARISON: No prior. FINDINGS: BONES: Normal. No fracture. JOINTS: Normal. No osteoarthritis. SOFT TISSUES: Normal. JOINT EFFUSION: None. OTHER FINDINGS: None. IMPRESSION: Unremarkable radiographs of the right elbow.
== END 2018-11-08 01:50 | disposition home or self-care (01) ==
LOC: C.ER 22:22
DX: F19.20 Other psychoactive substance dependence, uncomplicated (principal)
CPT/HCPCS: 73080; 80053; 81001; 83735; 84100; 85025; 99285; G0480

== ENCOUNTER 2018-11-11 21:23 | Inpatient (IN) | payer MEDICARE, MEDICAID ==
[2018-11-11 21:23] VITALS: BMI 21.1
--- NOTE | 2018-11-11 22:22 | C.PDOC ---
History Of Present Illness The patient presents to the ED requesting heroin detox. Patient states his last use was two days ago. He denies suicidal/homicidal ideation at this time. Time Seen by Provider: 11/11/18 22:21 Chief Complaint (Nursing): Substance Abuse History Per: Patient History/Exam Limitations: intoxication Onset/Duration Of Symptoms: Hrs Current Symptoms Are (Timing): Still Present Suicide/Self Injury Attempted (Context): None Modifying Factor(s): Other (heroin) Severity: None Pain Scale Rating Of: 0 Associated Symptoms: denies: Suicidal Thoughts, Suicidal Plan Involuntary Hold By: None Recent travel outside of the [place]: No Additional History Per: Patient Past Medical History Reviewed: Historical Data, Nursing Documentation, Vital Signs Vital Signs: Last Vital Signs Temp 99 F 11/11/18 22:19 Pulse 83 11/11/18 22:19 Resp 20 11/11/18 22:19 BP 142/89 11/11/18 22:19 Pulse Ox 98 11/11/18 22:19 - Medical History PMH: Anxiety, Asthma, Back Problems (spinal fusion), Bipolar Disorder, Depression, HTN, Hypercholesterolemia, Personality Disorder, Post Traumatic Stress Disorder, Schizophrenia, Chronic Pain (back) Denies: Diabetes, Hepatitis, HIV, Chronic Kidney Disease, Seizures, Sexually Transmitted Disease Surgical History: Appendectomy, Back Surgery, Tonsillectomy - [facility] Procedures DETOXIFICATION SERVICES FOR SUBSTANCE ABUSE TREATMENT (07/22/18) GROUP COMMERCIAL LINES MANAGER FOR SUBSTANCE ABUSE TREATMENT, PSYCHOEDUCATION (07/22/18) GROUP PSYCHOTHERAPY (07/22/18) INDIV PSYCHOTHERAPY FOR SUBSTANCE ABUSE TREATMENT, SUPPORT (07/22/18) INDIVIDUAL PSYCHOTHERAPY, SUPPORTIVE (07/22/18) MEDICATION MANAGEMENT (07/22/18) MEDS MGMT FOR SUBSTANCE ABUSE TREATMENT, NICOTINE REPLACE (07/22/18) Family History: States: Unknown Family Hx - Social History Hx Tobacco Use: Yes Hx Alcohol Use: Yes Hx Substance Use: Yes - Immunization History Hx Tetanus Toxoid Vaccination: No Hx Influenza Vaccination: Yes Hx Pneumococcal Vaccination: No Review Of Systems Constitutional: Negative for: Fever, Chills Cardiovascular: Negative for: Chest Pain, Palpitations Respiratory: Negative for: Cough, Shortness of Breath Gastrointestinal: Negative for: Nausea, Vomiting, Abdominal Pain Skin: Negative for: Rash, Lesions, Jaundice, Bruising Psych: Positive for: Other (heroin detox ). Negative for: Suicidal ideation Physical Exam - Physical Exam Appears: Non-toxic, No Acute Distress Skin: Warm, Dry Head: Normacephalic Oral Mucosa: Moist Neck: Supple Chest: Symmetrical, No Deformity Cardiovascular: Rhythm Regular Respiratory: No Accessory Muscle Use Extremity: Normal ROM Neurological/Psych: Oriented x3 ED Course And Treatment - Laboratory Results Result Diagrams: 11/11/18 22:29 11/11/18 22:29 O2 Sat by Pulse Oximetry: 98 (on RA) Pulse Ox Interpretation: Normal Progress Note: Bloodwork and urinalysis ordered and reviewed. Disposition Discussed With Dr.: Prieto Goodson Comment: accepted the patient on his service and took over the care at 12:41 AM Doctor Will See Patient In The: Hospital Counseled Patient/Family Regarding: Studies Performed, Diagnosis - Disposition Disposition: HOSPITALIZED Disposition Time: 22:21 Condition: FAIR Forms: [facility] (Bengali) - POA Present On Arrival: Poor Glycemic Control - Clinical Impression Clinical Impression: Opioid use disorder - Scribe Statement The provider has reviewed the documentation as recorded by the Scribe (Arabella Hickman) Provider Attestation: All medical record entries made by the Scribe were at my direction and personally dictated by me. I have reviewed the chart and agree that the record accurately reflects my personal performance of the history, physical exam, medical decision making, and the department course for this patient. I have also personally directed, reviewed, and agree with the discharge instructions and disposition. Decision To Admit - Pt Status Changed To: Hospital Disposition Of: Inpatient - Admit Certification Admit to Inpatient:: After my assessment, the patient will require hospitalization for at least two midnights. This is because of the severity of symptoms shown, intensity of services needed, and/or the medical risk in this patient being treated as an outpatient. - InPatient: Physician Admission Certification: I certify that this patient requires 2 or more midnights of care for the following reason:: After my assessment, the patient will require hospitalization for at least two midnights. This is because of the severity of symptoms shown, intensity of services needed, and/or the medical risk in this patient being treated as an outpatient. - . Bed Request Type: Detox Admitting Physician: Prieto Goodson Patient Diagnosis: Opioid use disorder
[2018-11-11 22:32] LABS: BASO # 0.1 K/uL (0.0-0.2); BASO % 0.9 % (0.0-2.0); EOS # 0.1 K/uL (0.0-0.7); HEMOGLOBIN 12.9 g/dL (12.0-18.0); LYMPH # 1.6 K/uL (1.0-4.3); LYMPH % 17.2 % (20.0-40.0); MEAN CELL VOLUME 91.1 fL (80.0-94.0); MEAN CORPUSCULAR HEMOGLOBIN 30.3 pg (27.0-31.0); MEAN CORPUSCULAR HGB CONC 33.3 g/dL (33.0-37.0); MEAN PLATELET VOLUME 8.7 fL (7.2-11.7); MONO # 0.5 K/uL (0.0-0.8); MONO % 5.1 % (0.0-10.0); NEUT # 6.8 K/uL (1.8-7.0); NEUT % 75.8 % (50.0-75.0); RBC 4.26 Mil/uL (4.40-5.90); RED CELL DISTRIBUTION WIDTH 14.4 % (11.5-14.5)
[2018-11-11 22:47] LABS: SQUAMOUS EPITHIAL < 1 /hpf (0-5); URINE BILIRUBIN NEGATIVE (NEGATIVE); URINE BLOOD NEGATIVE (NEGATIVE); URINE CLARITY Clear (Clear); URINE COLOR Yellow (YELLOW); URINE GLUCOSE (UA) NORMAL (Normal); URINE LEUKOCYTE ESTERASE TRACE Leu/uL (Negative); URINE PROTEIN NEGATIVE (NEGATIVE); URINE UROBILINOGEN NORMAL mg/dL (0.2-1.0)
[2018-11-11 22:49] LABS: ALB/GLOB RATIO 1.4 (1.0-2.1); ALBUMIN 3.9 g/dL (3.5-5.0); ALT/SGPT 41 U/L (21-72); AST/SGOT 56 U/L (17-59); BLOOD UREA NITROGEN 13 mg/dL (9-20); CALCIUM 8.9 mg/dl (8.6-10.4); GFR NON-AFRICAN AMERICAN > 60
[2018-11-11 22:59] LABS: BARBITURATES, UR NEGATIVE (NEGATIVE); BENZODIAZEPINES, UR NEGATIVE (NEGATIVE); PHENCYCLIDINE, UR NEGATIVE (NEGATIVE)
[2018-11-11 23:03] LABS: OPIATES, UR POSITIVE (NEGATIVE)
--- NOTE | 2018-11-12 01:42 | PCM.BM ---
Treatment Plan Problems - Problems identified on initial assessmt potential for opiates withdrawal Date Initiated: 11/12/18 Time Initiated: 01:41 Assessment reference: NA Status: Active Treatment assets and liabiliti Patient Assests: cooperative, ADL independent, cognitively intact Patient Liabilities: substance abuse - Milieu Protocol Maintain good personal hygiene: daily Encourage regular showers, daily Remind patient to perform daily oral care, daily Assist patient to perform ADL's Maintain personal safety: every shift Educate patient to report safety concerns to staff, every shift Monitor environment for contraband/sharps Medication safety: Monitor for expected outcome, potential side effects: every shift, Assess barriers to learning: every shift, Assess readiness for medication education: every shift
[2018-11-12 06:12] VITALS: RESP 18
[2018-11-12 10:18] VITALS: O2SAT 98
[2018-11-12] MEDS ORDERED: Aluminum Hydroxide/Magnesium Hydroxide Susp (30 mL) PO PRN (12:25)
[2018-11-12] MEDS ORDERED: Naproxen 550 mg Tab PO PRN (12:43)
[2018-11-12 17:49] VITALS: BP 146/93; PULSE 80; TEMP 97.4
--- NOTE | 2018-11-12 21:04 | PCM.PSYCH ---
Initial Psychiatric Evaluation - Initial Psychiatric Evaluation Type of Admission: Voluntary Legal Status: Capacity Chief Complaint (in patient's own words): I need help for my heroin use. History of Present Illness and Precipitating Events: Patient is a 48 years old, single, unemployed, on disability since 2009, male with history of bipolar disorder and OCD was admitted due to withdrawing from heroin. Patient reported history of bipolar disorder and OCD for last many years and was in treatment in the past, stopped getting treatment 2 years ago for personal reasons. Continued using heroin. Patient reported started using heroin in November 2017. Before that patient was taking oxycodone 30 mg 4 tablets daily and morphine 100 mg daily for his back ache. According to patient he was stopped getting it from the provider and later he started using heroin. Increase gradually and currently patient was taking up to 15 bags of heroin daily, sniffing. His last use of an was 4 days ago. History of one previous detox. Patient was also positive for cocaine. Denied using cocaine regularly but reported using 1 cigarette of cocaine before coming to the hospital. Denied use of cannabis or alcohol. Patient smokes one pack of cigarettes daily and is requesting for nicotine patch. Patient was born in [place] and has 11th grade of education. Not working and is on disability since 2009. She was never but lives with a female for last 25-30 years. Has no children. His height is 6 feet 1 inch and weight is 167 pounds. Past Psychiatric History - Past Psychiatric History Previous Treatment History: Intensive Outpatient History of Abuse: None reported History of ETOH/Drug Use: See HPI History of Family Illness: Reported history of schizophrenia in his sister and niece. Pertinent Medical Hx (Current Medical&Sleep Prob, Allergies): Allergies Allergy/AdvReac Type Severity Reaction Status Date / Time FISH Allergy Mild ITCHING Verified 07/26/18 10:10 Cyclobenzaprine [Flexeril] 5 mg PO BID #60 tab 07/24/18 Gabapentin [Neurontin] 400 mg PO TID #90 cap 07/24/18 QUEtiapine [Seroquel] 100 mg PO HS #30 tab 07/24/18 Morphine Sulfate [Morphine Sulfate ER] 100 mg PO BID 07/26/18 oxyCODONE [oxyCODONE Immediate Release Tab] 30 mg PO QID 07/26/18 Hypertension Review of Systems - Psychiatric Psychiatric: As Per HPI, Anxiety Mental Status Examination - Personal Presentation Personal Presentation: Looks stated age - Affect Affect: Other (Appropriate) - Motor Activity Motor Activity: Calm - Reliability in Providing Information Reliability in Providing Information: Fair - Speech Speech: Organized - Mood Mood: Anxious - Formal Thought Process Formal Thought Process: No Impairment - Hallucinations/Delusions Hallucinations: Other (None reported) Delusions: Other - Obsessions/Compulsions Obsessions: None Compulsions: None - Cognitive Functions Orientation: Person, Place, Situation, Time Sensorium: Alert Attention/Concentration: Attentive Abstract Thinking: [place] Estimate of Intelligence: Average Judgement: Intact, as evidence by: Insight regarding need for hospitalization Memory: Recent intact, as evidence by: Ability to recall events of the day, Remote intact, as evidenced by: Ability to recall historical events - Risk Risk: Withdrawal, Diminished functioning - Strength & Assets Inventory Strength & Assets Inventory: Family support, Cooperative - Limitations Limitations: Other DSM 5 DX - DSM 5 DSM 5 Diagnosis: Opioid withdrawal Opioid use disorder severe Bipolar 1 disorder with psychotic features. OCD - Recommended/Plan of Treatment Treatment Recommendations and Plan of Treatment: Patient education. Supportive therapy. CBT for relapse prevention. LA for abstinence. We'll start methadone taper for opiate withdrawal symptoms. Other when necessary medications. Patient wants to go to methadone maintenance treatment program for follow-up care after discharge from the hospital. Projected ELOS: 4-5 days - Smoking Cessation Smoking Cessation Initiated: Yes
--- NOTE | 2018-11-12 21:04 | PCM.PYCHDC ---
Mental Status Examination - Mental Status Examination Orientation: Person, Place, Situation, Time Memory: Intact Mood: Neutral Affect: Other (Appropriate) Speech: Appropriate Attention: WNL Concentration: WNL Association: WNL Fund of Knowledge: WNL Formal Thought Process: No Impairment Description of patient's judgement and insight: Poor Psychotic Thoughts and Behaviors: None Suicidal Ideation: No Current Homicidal Ideation?: No Discharge Summary - Discharge Note Reason for Hospitalization: Opioid withdrawal Opioid use disorder severe Bipolar 1 disorder severe with psychotic features. OCD Laboratory Data: Abnormal Lab Results 11/11/18 11/11/18 11/11/18 22:29 22:29 22:35 WBC 9.0 RBC 4.26 L Hgb 12.9 Hct 38.8 MCV 91.1 MCH 30.3 MCHC 33.3 RDW 14.4 Plt Count 257 MPV 8.7 Neut % (Auto) 75.8 H Lymph % (Auto) 17.2 L Newton % (Auto) 5.1 Eos % (Auto) 1.0 Baso % (Auto) 0.9 Neut # (Auto) 6.8 Lymph # (Auto) 1.6 Newton # (Auto) 0.5 Eos # (Auto) 0.1 Baso # (Auto) 0.1 Sodium 138 Potassium 4.0 Chloride 104 Carbon Dioxide 27 Anion Gap 10 BUN 13 Creatinine 0.7 L Est GFR ( Amer) > 60 Est GFR (Non-Af Amer) > 60 Random Glucose 128 H D Calcium 8.9 Phosphorus 3.0 Magnesium 1.8 Total Bilirubin 0.5 AST 56 ALT 41 Alkaline Phosphatase 74 Total Protein 6.6 Albumin 3.9 Globulin 2.7 Albumin/Globulin Ratio 1.4 Urine Color Yellow Urine Clarity Clear Urine pH 5.0 Ur Specific Sheldon 1.026 Urine Protein Negative Urine Glucose (UA) Normal Urine Ketones Trace Urine Blood Negative Urine Nitrate Negative Urine Bilirubin Negative Urine Urobilinogen Normal Ur Leukocyte Esterase Trace Urine WBC (Auto) 1 Urine RBC (Auto) 1 Ur Squamous Epith Cells < 1 Urine Opiates Screen Urine Methadone Screen Ur Barbiturates Screen Ur Phencyclidine Scrn Ur Amphetamines Screen U Benzodiazepines Scrn U Oth Cocaine Metabols U Cannabinoids Screen Alcohol, Quantitative < 10 11/11/18 22:35 WBC RBC Hgb Hct MCV MCH MCHC RDW Plt Count MPV Neut % (Auto) Lymph % (Auto) Newton % (Auto) Eos % (Auto) Baso % (Auto) Neut # (Auto) Lymph # (Auto) Newton # (Auto) Eos # (Auto) Baso # (Auto) Sodium Potassium Chloride Carbon Dioxide Anion Gap BUN Creatinine Est GFR ( Amer) Est GFR (Non-Af Amer) Random Glucose Calcium Phosphorus Magnesium Total Bilirubin AST ALT Alkaline Phosphatase Total Protein Albumin Globulin Albumin/Globulin Ratio Urine Color Urine Clarity Urine pH Ur Specific Sheldon Urine Protein Urine Glucose (UA) Urine Ketones Urine Blood Urine Nitrate Urine Bilirubin Urine Urobilinogen Ur Leukocyte Esterase Urine WBC (Auto) Urine RBC (Auto) Ur Squamous Epith Cells Urine Opiates Screen Positive H Urine Methadone Screen Negative Ur Barbiturates Screen Negative Ur Phencyclidine Scrn Negative Ur Amphetamines Screen Negative U Benzodiazepines Scrn Negative U Oth Cocaine Metabols Positive H U Cannabinoids Screen Negative Alcohol, Quantitative Consultations:: List each consultation separately and include: 1. Reason for request. 2. Findings. 3. Follow-up Summary of Hospital Course include:: 1. Description of specific treatment plan utilized for patients during their course of treatmen. 2. Summarize the time- course for resolution of acute symptoms and/or regressed behaviors. 3. Describe issues identified and worked on during hospitalization. 4. Describe medication utilized. 5. Describe medical problems identified and treated. 6. Reassessment of suicide risk Summary of Hospital Course: Patient is a 48 years old, single, unemployed, on disability since 2009, [place] asian male with history of bipolar disorder and OCD was admitted due to withdrawing from heroin. Patient reported history of bipolar disorder and OCD for last many years and was in treatment in the past, stopped getting treatment 2 years ago for personal reasons. Continued using heroin. Patient reported started using heroin in November 2017. Before that patient was taking oxycodone 30 mg 4 tablets daily and morphine 100 mg daily for his back ache. According to patient he was stopped getting it from the provider and later he started using heroin. Increase gradually and currently patient was taking up to 15 bags of heroin daily, sniffing. His last use of an was 4 days ago. History of one previous detox. Patient was also positive for cocaine. Denied using cocaine regularly but reported using 1 cigarette of cocaine before coming to the hospital. Denied use of cannabis or alcohol. Patient smokes one pack of cigarettes daily and is requesting for nicotine patch. Patient was born in [place] and has 11th grade of education. Not working and is on disability since 2009. She was never but lives with a female for last 25-30 years. Has no children. His height is 6 feet 1 inch and weight is 167 pounds. Patient was started on methadone taper for opioid withdrawal symptoms and other when necessary medications. Patient was educated about treatment and also about follow-up care. Patient wanted to go to on methadone maintenance treatment program after discharge from the hospital. Later patient decided to leave the hospital without completion of the treatment. Patient was educated and encouraged to complete the detox, patient refused. Patient was also educated that in case of any adverse events including relapse, decompensation, overdose or even of the patient, patient will be responsible for his acts. Patient understood and agreed with the above but still refuses to stay and left the unit AGAINST MEDICAL ADVICE. - Final Diagnosis (DSM 5) Condition upon Discharge: FAIR Disposition: AGAINST MEDICAL ADVICE - Smoking Cessation Smoking Cessation Medication prescribed: No - Antipsychotic Medications Pt discharged on 2 or more routine antipsychotic medications: No
== END 2018-11-12 18:29 | disposition left against medical advice (07) | DRG 894 ==
LOC: C.ER 21:23 → C.7D 11-12 00:40
PROVIDERS: ADMIT Psychiatry & Neurology Psychiatry; ATTEND Psychiatry & Neurology Psychiatry
PROC: HZ2ZZZZ Detoxification Services for Substance Abuse Treatment (ICD-10-PCS; principal; 2018-11-12)
PROC: GZ3ZZZZ Medication Management (ICD-10-PCS; 2018-11-12)
PROC: HZ81ZZZ Medication Management for Substance Abuse Treatment, Methadone Maintenance (ICD-10-PCS; 2018-11-12)
PROC: HZ80ZZZ Medication Management for Substance Abuse Treatment, Nicotine Replacement (ICD-10-PCS; 2018-11-12)
PROC: HZ46ZZZ Group Counseling for Substance Abuse Treatment, Psychoeducation (ICD-10-PCS; 2018-11-12)
PROC: HZ59ZZZ Individual Psychotherapy for Substance Abuse Treatment, Supportive (ICD-10-PCS; 2018-11-12)
DX: F11.23 Opioid dependence with withdrawal (principal); F31.89 Other bipolar disorder; F42.9 Obsessive-compulsive disorder, unspecified; F43.10 Post-traumatic stress disorder, unspecified; F60.9 Personality disorder, unspecified; F20.9 Schizophrenia, unspecified; F17.210 Nicotine dependence, cigarettes, uncomplicated; I10 Essential (primary) hypertension; J45.909 Unspecified asthma, uncomplicated; E78.00 Pure hypercholesterolemia, unspecified; Z98.1 Arthrodesis status; Z81.8 Family history of other mental and behavioral disorders